=== PATIENT | male | born 1955 | race Caucasian/White ===

== ENCOUNTER 2016-09-30 14:14 | Observation (INO) | payer OTHER ==
[~2016-09-30] VITALS: Ht 182.9 cm; Wt 80.0 kg
[~2016-09-30 14:14] MED LIST: BACT800T5 PO; CLIN1CAP5 PO; LORTA5 PO; MUPI2OIN TOPICAL; SULF-154 PO; [UNRECOGNIZED DRUG - CODE] TOPICAL
[2016-09-30 14:16] VITALS: BP 140/79; PULSE 97; RESP 16; TEMP 98.1; O2SAT 97
[2016-09-30] MEDS ORDERED: VANCOMYCIN INJ 1,200 MG in SODIUM CHLOR 0.9% 250 ML INJ 250 ML IV ONE (14:30)
[2016-09-30] MEDS ORDERED: MORPHINE SULFATE 4 MG/ML INJ IV PUSH ONE (14:30)
[2016-09-30 14:37] VITALS: RESP 16; O2SAT 95
--- NOTE | 2016-09-30 14:43 | PD ---
HPI Chief Complaint: Skin Problem Time Seen by Provider: 14:22 Travel History International Travel<30 days: No Contact w/Intl Traveler<30days: No Traveled to known affect area: No History of Present Illness HPI Patient is a 61 year old male who presents to emergency room with complaints of abscess with cellulitis. 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 Patient reports that he has multiple abrasions to both his hands and his wrists. Patient reports that he noticed areas of abscess on his left finger as well as left wrist for the past few days. Reports that he noticed increased streaking from this left wrist abscess since yesterday. Reports concern as he does have a plate placed by Dr Granados to his left wrist. Reports that he is concerned that his hard phelan might get infected with his abscess with cellulitis. Patient also reports that he noticed abscess to his right mid forearm which is draining pus. Tetanus is up to date. PFSH Past Medical History Hx Anticoagulant Therapy: No Blood Disorders: No Anxiety: No Depression: No Heart Rhythm Problems: No Cancer: No Cardiovascular Problems: No High Cholesterol: No Chemotherapy: No Chest Pain: No Congestive Heart Failure: No COPD: No Cerebrovascular Accident: No Diabetes: No Diminished Hearing: No Endocrine: No Gastrointestinal Disorders: Yes Genitourinary: No Hepatitis: Yes (HEP C) Hiatal Hernia: No Immune Disorder: No Implanted Vascular Access Dvce: No Musculoskeletal: No Neurologic: No Psychiatric: No Reproductive: No Respiratory: No Immunizations Current: No Radiation Therapy: No Sleep Apnea: No Thyroid Disease: No Past Surgical History Abdominal Surgery: No AICD: No Cardiac Surgery: No Ear Surgery: No Endocrine Surgery: No Eye Surgery: No Genitourinary Surgery: No Gynecologic Surgery: No Hysterectomy: No Joint Replacement: No Oral Surgery: No Pacemaker: No Thoracic Surgery: No Other Surgery: Yes Social History Alcohol Use: No Tobacco Use: Yes (1/2 PK/DAY) Substance Use: Yes (alcohol) Allergies-Medications (Allergen,Severity, Reaction): Coded Allergies: *MDRO Multi-Drug Resistant Organism (Verified Adverse Reaction, Unknown, ) 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 Reported Meds & Prescriptions Reported Meds & Active Scripts Active No Active Prescriptions or Reported Medications Review of Systems General / Constitutional: Positive: Fever, Chills Eyes: No: Visual changes HENT: No: Headaches Cardiovascular: No: Chest Pain or Discomfort Respiratory: No: Shortness of Breath Gastrointestinal: No: Abdominal Pain Genitourinary: No: Dysuria Musculoskeletal: No: Pain Skin: Positive Rash Neurologic: No: Weakness Psychiatric: No: Depression Endocrine: No: Polydipsia Hematologic/Lymphatic: No: Easy Bruising Physical Exam Narrative GENERAL: nad, nontoxic SKIN: Warm and dry. LUE: pt with abscess to digit #5, pt with abscess to left wrist with streaking up left forerarm RUE: pt with abscess to right mid forearm with purulent drainage HEAD: Atraumatic. Normocephalic. EYES: Pupils equal and round. No scleral icterus. No injection or drainage. ENT: No nasal bleeding or discharge. Mucous membranes pink and moist. NECK: Trachea midline. No JVD. CARDIOVASCULAR: Regular rate and rhythm. No murmur appreciated. RESPIRATORY: No accessory muscle use. Clear to auscultation. Breath sounds equal bilaterally. GASTROINTESTINAL: Abdomen soft, non-tender, nondistended. Hepatic and splenic margins not palpable. MUSCULOSKELETAL: No obvious deformities. No clubbing. No cyanosis. No edema. NEUROLOGICAL: Awake and alert. No obvious cranial nerve deficits. Motor grossly within normal limits. Normal speech. PSYCHIATRIC: Appropriate mood and affect; insight and judgment normal. Data Data Last Documented VS Vital Signs Date Time Temp Pulse Resp B/P Pulse Ox O2 Delivery O2 Flow Rate FiO2 09/30/16 16:49 69 18 159/84 95 Room Air 09/30/16 14:16 98.1 Orders Complete Blood Count With Diff (09/30/16 14:27) Comprehensive Metabolic Panel (09/30/16 14:27) Prothrombin Time / Inr (Pt) (09/30/16 14:27) Act Partial Throm Time (Ptt) (09/30/16 14:27) Blood Culture (09/30/16 14:27) Chest, Single Ap (09/30/16 14:27) Ecg Monitoring (09/30/16 14:27) Iv Access Insert/Monitor (09/30/16 14:27) Oximetry (09/30/16 14:27) Hand, Complete ([id number]) (09/30/16 ) Forearm (2vws) (09/30/16 ) Forearm (2vws) (09/30/16 ) Vancomycin Inj (Vancomycin Inj) (09/30/16 14:30) Morphine Inj (Morphine Inj) (09/30/16 14:30) Diet Regular Basic (09/30/16 Dinner) Labs Laboratory Tests Test 09/30/16 14:50 White Blood Count 4.6 TH/MM3 Red Blood Count 4.28 MIL/MM3 Hemoglobin 14.8 GM/DL Hematocrit 41.4 % Mean Corpuscular Volume 96.7 FL Mean Corpuscular Hemoglobin 34.6 PG Mean Corpuscular Hemoglobin 35.8 % Concent Red Cell Distribution Width 13.6 % Platelet Count 91 TH/MM3 Mean Platelet Volume 8.5 FL Neutrophils (%) (Auto) 62.3 % Lymphocytes (%) (Auto) 28.5 % Monocytes (%) (Auto) 7.8 % Eosinophils (%) (Auto) 0.7 % Basophils (%) (Auto) 0.7 % Neutrophils # (Auto) 2.9 TH/MM3 Lymphocytes # (Auto) 1.3 TH/MM3 Monocytes # (Auto) 0.4 TH/MM3 Eosinophils # (Auto) 0.0 TH/MM3 Basophils # (Auto) 0.0 TH/MM3 CBC Comment DIFF FINAL Differential Comment Prothrombin Time 11.6 SEC Prothromb Time International 1.0 RATIO Ratio Activated Partial 30.1 SEC Thromboplast Time Sodium Level 136 MEQ/L Potassium Level 4.0 MEQ/L Chloride Level 101 MEQ/L Carbon Dioxide Level 26.8 MEQ/L Anion Gap 8 MEQ/L Blood Urea Nitrogen 17 MG/DL Creatinine 1.21 MG/DL Estimat Glomerular Filtration 61 ML/MIN Rate Random Glucose 199 MG/DL Calcium Level 8.5 MG/DL Total Bilirubin 1.1 MG/DL Aspartate Amino Transf 138 U/L (AST/SGOT) Alanine Aminotransferase 123 U/L (ALT/SGPT) Alkaline Phosphatase 177 U/L Total Protein 8.0 GM/DL Albumin 3.1 GM/DL MDM Medical Decision Making Medical Screen Exam Complete: Yes Emergency Medical Condition: Yes Interpretation(s) Vital Signs Date Time Temp Pulse Resp B/P Pulse Ox O2 Delivery O2 Flow Rate FiO2 09/30/16 14:37 16 95 Room Air 09/30/16 14:37 93 18 09/30/16 14:16 98.1 97 16 140/79 97 Differential Diagnosis abscess with cellulitis, left sided forearm hardware infection Narrative Course 61 year old male with hx of left forearm plate - presents to ER for evaluation of abscess with cellulitis to left upper extremity. Reports that he has been putting A&D cream on his open wounds and reports that wounds are just getting worse. Patient reports that he has been having increased fever/chills. Denies n/v. Reports that tetanus is up to date. Xrays ordered, labs and blood cultures ordered. Will give dose of vancomycin. ' CBC & BMP Diagram 09/30/16 14:50 Last Impressions Chest X-Ray 09/30/16 1427 Signed Impressions: Service Date/Time: Friday, September 30, 2016 15:17 - CONCLUSION: No acute disease. Galo Lovell MD Radius/Ulna X-Ray 09/30/16 0000 Signed Impressions: Service Date/Time: Friday, September 30, 2016 15:20 - CONCLUSION: 1. Fixation distal radius. No acute fracture. Galo Lovell MD Hand X-Ray 09/30/16 0000 Signed Impressions: Service Date/Time: Friday, September 30, 2016 15:23 - CONCLUSION: 1. No acute findings. Galo Lovell MD pt with continued pain to LUE where he has streaking from cellulitis, pt does have hardware to left forearm and will require iv antibiotics, will obs to medicine service case reviewed with dr higgins who accepts pt to service on behalf of dr. henriquez Diagnosis Primary Impression: Cellulitis Admitting Information Admitting Physician Requests: Observation Scripts No Active Prescriptions or Reported Meds Cynthia Garcia DO Sep 30, 2016 14:43 Cynthia Garcia DO Sep 30, 2016 14:43
[2016-09-30 15:18] LABS: AUTOMATED NEUTROPHIL # 2.9 TH/MM3 (1.8-7.7); BASOPHIL % 0.7 % (0.0-2.0); EOSINOPHIL % 0.7 % (0.0-4.0); HEMATOCRIT 41.4 % (39.0-51.0); LYMPH % 28.5 % (9.0-44.0); LYMPHOCYTE # 1.3 TH/MM3 (1.0-4.8); MEAN CELL VOLUME 96.7 FL (80.0-100.0); MEAN CORPUSCULAR HEMOGLOBIN 34.6 PG (27.0-34.0); MEAN CORPUSCULAR HGB CONC 35.8 % (32.0-36.0); MONO % 7.8 % (0.0-8.0); NEUT % 62.3 % (16.0-70.0); PLATELET COUNT 91 TH/MM3 (150-450); RED BLOOD COUNT 4.28 MIL/MM3 (4.50-5.90); RED CELL DISTRIBUTION WIDTH 13.6 % (11.6-17.2); WHITE BLOOD COUNT 4.6 TH/MM3 (4.0-11.0)
[2016-09-30 15:19] LABS: HEMO FLAGS DIFF FINAL
[2016-09-30 15:32] LABS: APTT (PATIENT) 30.1 SEC (24.3-30.1); PROTHROMBIN TIME - PATIENT 11.6 SEC (9.8-11.6)
[2016-09-30 15:41] LABS: ALT (GPT) 123 U/L (12-78); ANION GAP 8 MEQ/L (5-15); AST (GOT) 138 U/L (15-37); BICARBONATE 26.8 MEQ/L (21.0-32.0); BLOOD UREA NITROGEN 17 MG/DL (7-18); CHLORIDE 101 MEQ/L (98-107); GLOMERULAR FILTRATION RATE 61 ML/MIN (>89); SODIUM (NA) 136 MEQ/L (136-145)
[2016-09-30 15:42] LABS: ALKALINE PHOSPHATASE 177 U/L (45-117); TOTAL BILIRUBIN ADULT 1.1 MG/DL (0.2-1.0)
--- NOTE | 2016-09-30 16:10 | RADRPT ---
EXAM DATE/TIME: 09/30/2016 15:17 [facility] COMPARISON: CHEST SINGLE AP, June 19, 2012, 19:50. INDICATIONS : Cough MEDICAL HISTORY : None. SURGICAL HISTORY : Carpal tunnel syndrome. ENCOUNTER: Initial ACUITY: 1 day PAIN SCORE: 0/10 LOCATION: Bilateral chest FINDINGS: A single view of the chest demonstrates the lungs to be symmetrically aerated without evidence of mas s, infiltrate or effusion. The cardiomediastinal contours are unremarkable. Osseous structures are intact. CONCLUSION: No acute disease. Galo Lovell MD on September 30, 2016 at 16:07 Board Certified Radiologist. This report was verified electronically.
--- NOTE | 2016-09-30 16:16 | RADRPT ---
EXAM DATE/TIME: 09/30/2016 15:23 [facility] COMPARISON: No previous studies available for comparison. INDICATIONS : Inflammation and red streaks of Left Forearm x1 day. 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 MEDICAL HISTORY : None. SURGICAL HISTORY : Carpal tunnel syndrome. ENCOUNTER: Initial ACUITY: 1 day PAIN SCORE: 0/10 LOCATION: Left hand FINDINGS: No acute fracture or dislocation. Previous fixation distal radius. Accessory ossicle at ulnar styloid . Mild osteopenia. CONCLUSION: 1. No acute findings. Galo Lovell MD on September 30, 2016 at 16:13 Board Certified Radiologist. This report was verified electronically.
--- NOTE | 2016-09-30 16:30 | RADRPT ---
EXAM DATE/TIME: 09/30/2016 15:20 [facility] COMPARISON: FOREARM RIGHT (2VWS), December 18, 2013, 19:23. INDICATIONS : Inflammation and red streaks of Left Forearm x1 day. 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 MEDICAL HISTORY : None. SURGICAL HISTORY : Carpal tunnel syndrome. ENCOUNTER: Initial ACUITY: 1 day PAIN SCORE: 0/10 LOCATION: Right Forearm FINDINGS: There is plate and screw fixation of the distal radius. No other fracture identified. No dislocation. CONCLUSION: 1. Fixation distal radius. No acute fracture. Galo Lovell MD on September 30, 2016 at 16:24 Board Certified Radiologist. This report was verified electronically.
[2016-09-30 16:49] VITALS: BP 159/84; PULSE 69; RESP 18; O2SAT 95
--- NOTE | 2016-09-30 17:26 | RADRPT ---
EXAM DATE/TIME: 09/30/2016 15:20 [facility] COMPARISON: No previous studies available for comparison. INDICATIONS : Inflammation and red streaks of Left Forearm x1 day. 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 MEDICAL HISTORY : None. SURGICAL HISTORY : Carpal tunnel syndrome. Bilat wrists plates ENCOUNTER: Initial ACUITY: 1 day PAIN SCORE: 10/10 LOCATION: Left Forearm FINDINGS: There is previous plate and screw fixation of the distal radius. No new fracture or dislocation. CONCLUSION: 1. Postop fixation distal radius. No acute findings. Galo Lovell MD on September 30, 2016 at 17:24 Board Certified Radiologist. This report was verified electronically.
[2016-09-30] MEDS ORDERED: ACETAMINOPHEN/HYDROcodone 325 MG/7.5 MG TAB PO PRN (17:30)
[2016-09-30] MEDS ORDERED: ACETAMINOPHEN 500 MG CPLT PO PRN (17:30)
[2016-09-30] MEDS ORDERED: SODIUM CHLORIDE 0.9% FLUSH 5 ML FLUSH IV PRN (17:30)
[2016-09-30] MEDS ORDERED: ONDANSETRON HCL 4 MG/2 ML VIAL IV PRN (17:45)
[2016-09-30] MEDS ORDERED: DOCUSATE SODIUM 50 MG/SENNA 8.6 MG TAB PO PRN (17:45)
--- NOTE | 2016-09-30 17:50 | HHI.HP ---
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 He has been here multiple times for orthopedic injuries as well as wound infections. He presents today with a chief complaint of a tender, warm , erythematous medial left forearm. He has multiple scabs on his arms, and he does not know where they came from whether they came from splinters or bug bites or hitting branches. Yesterday afternoon he noted some left arm pain. Last night, the pain was driving him crazy and he felt febrile with associated nausea and profuse sweating. Thus, he took some NyQuil before bed. This morning, he saw a red streak on his medial left arm. He also noted some yellow discharge for a couple days from some of his scabs. Before morphine he reports that his pain was a 10/10 pain. After morphine he reports that his pain is now 8/10. He reports that his medial left arm feels from his left wrist to elbow. He also reports some tender axillary lymphadenopathy. (Guerrero Frias MD R1) Review of Systems Constitutional: COMPLAINS OF: Diaphoretic episodes, Fever, Chills, Night Sweats Eyes: DENIES: Blurred vision, Diplopia, Double Vision Ears, nose, mouth, throat: DENIES: Hearing loss, Throat pain, Running Nose Respiratory: DENIES: Cough, Wheezing, Shortness of breath Cardiovascular: DENIES: Chest pain, Dyspnea on Exertion, Lower Extremity Edema , Orthopnea Gastrointestinal: COMPLAINS OF: Nausea, DENIES: Abdominal pain, Black stools, Bloody stools, Diarrhea, Vomiting Genitourinary: DENIES: Dysuria Musculoskeletal: COMPLAINS OF: Joint pain (chronic at baseline), Muscle aches ( chronic at baseline) Integumentary: DENIES: Rash Neurologic: COMPLAINS OF: Paresthesias (numb feet and right hand), DENIES: Headache Psychiatric: DENIES: Anxiety, Depression (Guerrero Frias MD R1) Past Family Social History Past Medical History Hep C no DM no h/o MRSA. No abx allergies. couple months since seen a doc. No PCP. No h/o blood clots. Past Surgical History right arm, left arm, left leg, left ankle fractures and surgical repairs from tree injuries. Dr. Granados did all his ortho work from these tree injuries. 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 Active Ordered Medications Current Medications Medications (Trade) Dose Ordered Sig/Sixto Route Start Time Stop Time Status Last Admin (NS Flush) 2 ml BID IV 09/30/16 21:00 09/30/16 20:16 (NS Flush) 2 ml UNSCH PRN IV 09/30/16 17:30 (Tylenol) 500 mg Q4H PRN PO 09/30/16 17:30 ([place]castle 7.5-325 Mg) 1 tab Q4H PRN PO 09/30/16 17:30 (Lovenox Inj) 40 mg Q24H SQ 09/30/16 18:00 (Zofran Inj) 4 mg Q6H PRN IV 09/30/16 17:45 (Mlia-Colace) 1 tab BID PRN PO 09/30/16 17:45 Morphine Sulfate 2 mg 2 mg Q3H PRN IV PUSH 09/30/16 17:45 09/30/16 20:16 (Ancef Inj/NS Inj) 100 ml @ 200 mls/hr Q8H IV 09/30/16 18:00 09/30/16 18:00 (Bactrim Ds 800-160 Mg) 1 tab Q12HR PO 09/30/16 21:00 09/30/16 21:02 Family History His mom of pancreatic cancer at 54 yo. She was a smoker and a drinker. Social History Patient reports that he smokes 7 cigarettes a day for the past 40 years. He quit alcohol because he wanted to take the Hep C drug treatment. Was drinking a 6-12 pack of beer per day for 30 years. GARRY got hep C in [employer] in [facility] as a 18yo. He was emancipated at 17yo. Homeless. Working on getting benefits through [employer]. He has been sleeping outside or with friends. (Guerrero Frias MD R1) Physical Exam Vital Signs Vital Signs Date Time Temp Pulse Resp B/P Pulse Ox O2 Delivery O2 Flow Rate FiO2 09/30/16 16:49 69 18 159/84 95 Room Air 09/30/16 15:41 18 09/30/16 14:37 16 95 Room Air 09/30/16 14:37 93 18 09/30/16 14:16 98.1 97 16 140/79 97 Physical Exam GENERAL: This is a well-nourished, well-developed patient, in no apparent distress. SKIN: Warmth, erythema, tenderness on medial aspect of left forearm. Scab with purulent drainage on right forearm. Scab over distal left ulna, scab on inner side of left pinky finger. No rashes. Cool and dry. HEAD: Atraumatic. Normocephalic. EYES: Pupils equal round and reactive. Extraocular motions intact. No scleral icterus. No injection or drainage. ENT: Nose without bleeding, purulent drainage. Throat without erythema, tonsillar hypertrophy or exudate. Uvula midline. Airway patent. NECK: Trachea midline. No JVD or lymphadenopathy. Supple, nontender, no meningeal signs. CARDIOVASCULAR: Regular rate and rhythm without murmurs, gallops, or rubs. RESPIRATORY: Clear to auscultation. Breath sounds equal bilaterally. No wheezes , rales, or rhonchi. GASTROINTESTINAL: Abdomen soft, non-tender, nondistended. No guarding. MUSCULOSKELETAL: Extremities without clubbing, cyanosis, or edema. No joint tenderness, effusion, or edema noted. No calf tenderness. NEUROLOGICAL: Awake and alert. Cranial nerves II through XII grossly intact. Motor and sensory grossly within normal limits. Normal speech. Laboratory Laboratory Tests Test 09/30/16 14:50 White Blood Count 4.6 Red Blood Count 4.28 Hemoglobin 14.8 Hematocrit 41.4 Mean Corpuscular Volume 96.7 Mean Corpuscular Hemoglobin 34.6 Mean Corpuscular Hemoglobin 35.8 Concent Red Cell Distribution Width 13.6 Platelet Count 91 Mean Platelet Volume 8.5 Neutrophils (%) (Auto) 62.3 Lymphocytes (%) (Auto) 28.5 Monocytes (%) (Auto) 7.8 Eosinophils (%) (Auto) 0.7 Basophils (%) (Auto) 0.7 Neutrophils # (Auto) 2.9 Lymphocytes # (Auto) 1.3 Monocytes # (Auto) 0.4 Eosinophils # (Auto) 0.0 Basophils # (Auto) 0.0 CBC Comment DIFF FINAL Differential Comment Prothrombin Time 11.6 Prothromb Time International 1.0 Ratio Activated Partial 30.1 Thromboplast Time Sodium Level 136 Potassium Level 4.0 Chloride Level 101 Carbon Dioxide Level 26.8 Anion Gap 8 Blood Urea Nitrogen 17 Creatinine 1.21 Estimat Glomerular Filtration 61 Rate Random Glucose 199 Calcium Level 8.5 Total Bilirubin 1.1 Aspartate Amino Transf 138 (AST/SGOT) Alanine Aminotransferase 123 (ALT/SGPT) Alkaline Phosphatase 177 Total Protein 8.0 Albumin 3.1 Date/Time Procedure Status Source Growth 09/30/16 14:55 Aerobic Blood Culture Received Blood Peripheral Pending 09/30/16 14:55 Anaerobic Blood Culture Received Blood Peripheral Pending (Guerrero Frias MD R1) Result Diagram: 09/30/16 1450 09/30/16 1450 Imaging Last Impressions Chest X-Ray 09/30/16 1427 Signed Impressions: Service Date/Time: Friday, September 30, 2016 15:17 - CONCLUSION: No acute disease. Galo Lovell MD Radius/Ulna X-Ray 09/30/16 0000 Signed Impressions: Service Date/Time: Friday, September 30, 2016 15:20 - CONCLUSION: 1. Fixation distal radius. No acute fracture. Galo Lovell MD Hand X-Ray 09/30/16 0000 Signed Impressions: Service Date/Time: Friday, September 30, 2016 15:23 - CONCLUSION: 1. No acute findings. Galo Lovell MD Course In the emergency department, patient received morphine 4 mg IV push, vancomycin IV 1, x-rays of hand and forearm, chest x-ray, blood culture, a PTT, PT/INR, CMP, CBC. (Guerrero Frias MD R1) Assessment and Plan Assessment and Plan Patient is a 61-year-old man who presents with left medial forearm cellulitis. Place in observation for antibiotic treatment and pain control. Code Status Full code Discussed Condition With Patient seen and discussed with Dr. Abril Carrizales (Guerrero Frias MD R1) Attending Attestation THIS CASE WAS DISCUSSED WITH THE RESIDENT PHYSICIAN. I HAVE REVIEWED THE RECORD AND AGREE WITH THE ABOVE NOTE AND PLAN OF CARE WAS DISCUSSED. I HAVE AUTHORIZED THE ORDER FOR PLACEMENT IN OUT-PATIENT OBSERVATION STATUS. (Jules Bermudez MD) Problem List: (1) Cellulitis Status: Acute Plan: Patient presents with left medial forearm cellulitis. Previous wound cultures reviewed. H/o staph resistant to clinda sensitive to cefazolin. Placed in observation CBC daily Blood culture Physical therapy consult Ancef 1000 mg IV every 8 hours. Plan to discharge on Keflex Bactrim DS 800-160 mg 1 tab by mouth every 12 hours Pain control: * Tylenol 500 mg by mouth every 4 hours when necessary for pain 1-5 * [place] 325-7.5 mg 1 tab by mouth every 4 hours when necessary for pain 6-10 * Morphine 2 mg IV push every 3 hours when necessary for breakthrough pain * Mila-Colace one tab by mouth twice a day when necessary for constipation Zofran 4 mg IV every 6 hours when necessary for nausea (2) Homelessness Status: Chronic Plan: Patient reports homelessness and difficulty getting benefits through [employer]. Case management consult (3) Nutrition, metabolism, and development symptoms Status: Acute Plan: Fluids: Patient hydrating well by mouth. Encourage by mouth intake Electrolytes: Replete as needed Nutrition: Regular basic diet GI prophylaxis: Not currently indicated (4) DVT prophylaxis Status: Acute Plan: Lovenox 40 mg subcutaneous every 24 hours SCD/TEDs bilaterally (Guerrero Frias MD R1) Problem Qualifiers (1) Cellulitis: Guerrero Frias MD R1 Sep 30, 2016 17:50 Jules Bermudez MD Oct 01, 2016 11:22
[2016-09-30] MEDS ORDERED: ENOXAPARIN SODIUM 40 MG/0.4 ML SYRINGE SQ SCH (18:00)
[2016-09-30] MEDS ORDERED: CLINDAMYCIN INJ 900 MG in SODIUM CHLORIDE 0.9% INJ 100 ML IV SCH (18:00)
[2016-09-30 19:08] VITALS: BP 144/74; PULSE 67; RESP 18; O2SAT 95
[2016-09-30] MEDS: MORPHINE SULFATE 4 MG/ML INJ IV PUSH PRN (20:16)
[2016-09-30] MEDS: SODIUM CHLORIDE 0.9% FLUSH 5 ML FLUSH IV SCH (20:16)
[2016-09-30 20:20] VITALS: BP 139/69; PULSE 78; RESP 16; TEMP 98.1; O2SAT 96
[2016-09-30] MEDS: SULFAMETHOXAZOLE-TRIMETHOPRIM DS 800-160 MG TAB PO SCH (21:02)
[2016-09-30 23:59] VITALS: BP 159/76; PULSE 88; RESP 18; TEMP 98.8; O2SAT 97
[2016-10-01] MEDS: MORPHINE SULFATE 4 MG/ML INJ IV PUSH PRN ×3 (01:29→09:37)
[2016-10-01 04:00] VITALS: BP 161/78; PULSE 87; RESP 18; TEMP 98; O2SAT 98
[2016-10-01 04:33] LABS: AUTOMATED NEUTROPHIL # 4.3 TH/MM3 (1.8-7.7); BASOPHIL % 0.4 % (0.0-2.0); EOSINOPHIL % 0.8 % (0.0-4.0); HEMATOCRIT 41.5 % (39.0-51.0); LYMPH % 13.8 % (9.0-44.0); LYMPHOCYTE # 0.7 TH/MM3 (1.0-4.8); MEAN CELL VOLUME 97.5 FL (80.0-100.0); MEAN CORPUSCULAR HEMOGLOBIN 34.6 PG (27.0-34.0); MEAN CORPUSCULAR HGB CONC 35.5 % (32.0-36.0); PLATELET COUNT 86 TH/MM3 (150-450); RED BLOOD COUNT 4.26 MIL/MM3 (4.50-5.90); RED CELL DISTRIBUTION WIDTH 13.4 % (11.6-17.2); WHITE BLOOD COUNT 5.4 TH/MM3 (4.0-11.0)
[2016-10-01 04:50] LABS: HEMO FLAGS AUTO DIFF
[2016-10-01 04:57] LABS: ALT (GPT) 122 U/L (12-78); ANION GAP 9 MEQ/L (5-15); AST (GOT) 146 U/L (15-37); BICARBONATE 23.1 MEQ/L (21.0-32.0); BLOOD UREA NITROGEN 16 MG/DL (7-18); CHLORIDE 102 MEQ/L (98-107); GLOMERULAR FILTRATION RATE 67 ML/MIN (>89); POTASSIUM 4.1 MEQ/L (3.5-5.1); SODIUM (NA) 134 MEQ/L (136-145)
[2016-10-01 04:59] LABS: ALKALINE PHOSPHATASE 162 U/L (45-117); TOTAL BILIRUBIN ADULT 0.9 MG/DL (0.2-1.0)
[2016-10-01 07:43] LABS: PLATELET ESTIMATE SMEAR LOW (NORMAL); PLATELET MORPHOLOGY NORMAL (NORMAL); SCAN/DIFF AUTO DIFF CONFIRMED
[2016-10-01 08:00] VITALS: BP 134/73; PULSE 82; RESP 19; TEMP 97.2; O2SAT 98
[2016-10-01] MEDS ORDERED: CALCIUM CARBONATE 500 MG CHEWABLE TAB CHEW SCH (09:00)
--- NOTE | 2016-10-01 09:14 | HHI.DCPOC ---
Discharge Care Plan Diagnosis: (1) Cellulitis Goals to Promote Your Health * To prevent worsening of your condition and complications * To maintain your health at the optimal level Directions to Meet Your Goals Take your medications as prescribed Follow your dietary instruction Follow activity as directed Keep your appointments as scheduled Take your immunizations and boosters as scheduled If your symptoms worsen call your PCP, if no PCP go to Urgent Care Center or Emergency Room Smoking is Dangerous to Your Health. Avoid second hand smoke Call the 24-hour hour crisis hotline for domestic abuse at Den Gunter MD R3 Oct 01, 2016 09:14
[2016-10-01] MEDS ORDERED: diphenhydrAMINE HCL 25 MG CAP PO PRN (09:15)
[2016-10-01] MEDS ORDERED: BACT800T5 PO ×2 (09:18→16:29)
[2016-10-01] MEDS ORDERED: CLIN1CAP6 PO (09:18)
[2016-10-01] MEDS: SODIUM CHLORIDE 0.9% FLUSH 5 ML FLUSH IV SCH (09:36)
[2016-10-01] MEDS: SULFAMETHOXAZOLE-TRIMETHOPRIM DS 800-160 MG TAB PO SCH (09:37)
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
[2016-10-01 12:33] VITALS: BP 124/62; PULSE 70; RESP 18; O2SAT 96
[2016-10-01 13:40] LABS: HEMOGLOBIN A1a 1.4 %; HEMOGLOBIN A1b 0.7 %; HEMOGLOBIN Ao 86.1 %; HEMOGLOBIN F 0.9 %; HEMOGLOBIN P3 3.5 %
[2016-10-01] MEDS ORDERED: HYDR-3580 PO (16:11)
[2016-10-01] MEDS ORDERED: BACI500O2 TOPICAL (16:12)
[2016-10-01] MEDS ORDERED: CEPH-460 PO (16:29)
== END 2016-10-01 18:32 | disposition home or self-care (01) ==
LOC: NEPE 14:14 → NEDA 16:55 → NEPFCDU 19:59
PROVIDERS: ADMIT Family Medicine; ATTEND Family Medicine
DX: L03.114 Cellulitis of left upper limb (principal); B19.20 Unspecified viral hepatitis C without hepatic coma; F17.210 Nicotine dependence, cigarettes, uncomplicated; W57.XXXA Bitten or stung by nonvenomous insect and other nonvenomous arthropods, initial encounter; W14.XXXA Fall from tree, initial encounter; Z59.0 Homelessness; Z80.0 Family history of malignant neoplasm of digestive organs
CPT/HCPCS: 71010; 73090; 73130; 80053; 83036; 85025; 85610; 85730; 87040; 96365; 96366; 96375; 97163; 99284; G0378; G8987; G8988; J0690; J2270; J3370; J7050

== ENCOUNTER 2016-12-05 16:33 | Inpatient (IN) | payer OTHER ==
[~2016-12-05] VITALS: Ht 177.8 cm; Wt 80.0 kg
[~2016-12-05 16:33] MED LIST changes: +BACI500O2 TOPICAL; +CEPH-460 PO; -CLIN1CAP5 PO; +HYDR-3580 PO; -LORTA5 PO; -MUPI2OIN TOPICAL; -SULF-154 PO; -[UNRECOGNIZED DRUG - CODE] TOPICAL
[2016-12-05] MEDS ORDERED: SODIUM CHLOR 0.9% 1000 ML INJ 1,000 ML IV SCH (16:51)
[2016-12-05] MEDS ORDERED: SODIUM CHLORIDE 0.9% FLUSH 10 ML FLUSH IVF PRN (17:00)
[2016-12-05] MEDS ORDERED: MORPHINE SULFATE 4 MG/ML INJ IV ONE (17:00)
[2016-12-05] MEDS ORDERED: ONDANSETRON HCL 4 MG/2 ML VIAL IVP ONE (17:00)
[2016-12-05] MEDS ORDERED: TETANUS/DIPHTHERIA TOXOID ADULT 0.5 ML VIAL IM ONE (17:15)
[2016-12-05 17:20] VITALS: BP 130/64; PULSE 74; RESP 20; TEMP 97.6
[2016-12-05] MEDS ORDERED: LIDOCAINE 1%/EPINEPHrine 1:100,000 SOLN 20 ML VIAL INFIL ONE (17:30)
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
[2016-12-05 17:58] LABS: AUTOMATED NEUTROPHIL # 2.1 TH/MM3 (1.8-7.7); BASOPHIL # 0.1 TH/MM3 (0-0.2); BASOPHIL % 1.4 % (0.0-2.0); EOSINOPHIL # 0.1 TH/MM3 (0-0.4); EOSINOPHIL % 2.6 % (0.0-4.0); HEMATOCRIT 38.4 % (39.0-51.0); HEMO FLAGS DIFF FINAL; LYMPH % 42.4 % (9.0-44.0); MEAN CELL VOLUME 101.6 FL (80.0-100.0); MEAN CORPUSCULAR HEMOGLOBIN 33.9 PG (27.0-34.0); MEAN CORPUSCULAR HGB CONC 33.3 % (32.0-36.0); MONO % 8.6 % (0.0-8.0); PLATELET COUNT 118 TH/MM3 (150-450); RED BLOOD COUNT 3.78 MIL/MM3 (4.50-5.90); RED CELL DISTRIBUTION WIDTH 15.2 % (11.6-17.2); WHITE BLOOD COUNT 4.6 TH/MM3 (4.0-11.0)
[2016-12-05] MEDS ORDERED: MORPHINE SULFATE 4 MG/ML INJ IV PUSH ONE (18:00)
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
[2016-12-05 18:14] LABS: BICARBONATE 21.7 MEQ/L (21.0-32.0); POTASSIUM 4.1 MEQ/L (3.5-5.1)
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
[2016-12-05 18:33] VITALS: BP 138/73; PULSE 84; RESP 18; O2SAT 96
[2016-12-05] MEDS ORDERED: LORazepam 2 MG TAB PO PRN (19:30)
[2016-12-05] MEDS ORDERED: FLUMAZENIL 0.5 MG/5 ML VIAL IV PUSH PRN (19:30)
[2016-12-05] MEDS ORDERED: LORazepam 2 MG/ML VIAL IV PUSH PRN (19:30)
[2016-12-05] MEDS ORDERED: SODIUM CHLORIDE 0.9% FLUSH 10 ML FLUSH IV FLUSH PRN (19:30)
[2016-12-05] MEDS ORDERED: NALOXONE HCL 0.4 MG/ML AMP IV PRN (19:30)
[2016-12-05] MEDS ORDERED: LORazepam 1 MG TAB PO PRN (19:30)
[2016-12-05 19:58] VITALS: O2SAT 97
[2016-12-05] MEDS: FOLIC ACID 1 MG TAB PO SCH (20:58)
[2016-12-05] MEDS: SODIUM CHLOR 0.9% 1000 ML INJ 1,000 ML IV SCH (20:58)
[2016-12-05] MEDS: THIAMINE HCL 100 MG TAB PO SCH (20:59)
[2016-12-05] MEDS: SODIUM CHLORIDE 0.9% FLUSH 10 ML FLUSH IV FLUSH SCH (20:59)
[2016-12-05] MEDS: MORPHINE SULFATE 4 MG/ML INJ IV PUSH PRN (20:59)
[2016-12-05] MEDS: LORazepam 2 MG/ML VIAL IV PUSH PRN (20:59)
[2016-12-05] MEDS: ONDANSETRON HCL 4 MG/2 ML VIAL IVP PRN (21:00)
[2016-12-05 21:02] VITALS: BP 162/75; PULSE 89; RESP 18; O2SAT 96
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
[2016-12-05 23:00] VITALS: BP 151/73; PULSE 84; RESP 21; TEMP 99.4; O2SAT 91
[2016-12-06 04:20] VITALS: PULSE 100; O2SAT 92
[2016-12-06] MEDS: LORazepam 2 MG/ML VIAL IV PUSH PRN (04:32)
[2016-12-06 05:11] LABS: AUTOMATED NEUTROPHIL # 4.5 TH/MM3 (1.8-7.7); BASOPHIL % 0.5 % (0.0-2.0); EOSINOPHIL % 0.4 % (0.0-4.0); HEMATOCRIT 39.7 % (39.0-51.0); HEMO FLAGS DIFF FINAL; LYMPH % 15.9 % (9.0-44.0); LYMPHOCYTE # 0.9 TH/MM3 (1.0-4.8); MEAN CELL VOLUME 100.6 FL (80.0-100.0); MEAN CORPUSCULAR HEMOGLOBIN 33.8 PG (27.0-34.0); MEAN CORPUSCULAR HGB CONC 33.6 % (32.0-36.0); MONO % 6.9 % (0.0-8.0); NEUT % 76.3 % (16.0-70.0); PLATELET COUNT 103 TH/MM3 (150-450); RED BLOOD COUNT 3.95 MIL/MM3 (4.50-5.90); WHITE BLOOD COUNT 5.9 TH/MM3 (4.0-11.0)
[2016-12-06 05:19] LABS: APTT (PATIENT) 30.3 SEC (24.3-30.1); INTERNATIONAL NORMALIZED RATIO 1.1 RATIO
[2016-12-06 05:35] LABS: BICARBONATE 22.9 MEQ/L (21.0-32.0)
[2016-12-06 08:00] VITALS: BP 143/70; PULSE 107; RESP 16; TEMP 99.7; O2SAT 95
[2016-12-06] MEDS: SODIUM CHLOR 0.9% 1000 ML INJ 1,000 ML IV SCH ×2 (08:33→18:25)
[2016-12-06] MEDS: SODIUM CHLORIDE 0.9% FLUSH 10 ML FLUSH IV FLUSH SCH ×2 (08:33→21:25)
[2016-12-06] MEDS: THIAMINE HCL 100 MG TAB PO SCH (08:33)
[2016-12-06] MEDS: FOLIC ACID 1 MG TAB PO SCH (08:33)
[2016-12-06] MEDS: MORPHINE SULFATE 4 MG/ML INJ IV PUSH PRN (08:37)
[2016-12-06 09:12] VITALS: O2SAT 97
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
[2016-12-06] MEDS ORDERED: ONDANSETRON HCL 4 MG/2 ML VIAL IV PUSH ONE (10:00)
[2016-12-06] MEDS ORDERED: LACTATED RINGER'S 1000 ML INJ 1,000 ML IV ONE (10:00)
[2016-12-06] MEDS ORDERED: NEOSTIGMINE 3 MG/3 ML SYR IV ONE (10:00)
[2016-12-06] MEDS ORDERED: PROPOFOL 200 MG/20 ML AMP IV ONE (10:00)
[2016-12-06] MEDS ORDERED: ENALAPRILAT 1.25 MG/ML VIAL IV PUSH PRN (11:00)
[2016-12-06 11:53] VITALS: BP 151/72; PULSE 84; RESP 17; TEMP 98.3; O2SAT 98
[2016-12-06] MEDS ORDERED: DEXAMETHASONE SOD PHOS 4 MG/ML VIAL ONE (15:11)
[2016-12-06] MEDS ORDERED: ceFAZolin INJ 1,000 MG VIAL ONE (15:11)
[2016-12-06] MEDS ORDERED: LIDOCAINE 1%/EPINEPHrine 1:100,000 SOLN 50 ML VIAL ONE (15:11)
[2016-12-06] MEDS ORDERED: CHLORHEXIDINE GLUCONATE 0.12% 30 ML CUP ONE (15:11)
[2016-12-06] MEDS ORDERED: HYDROmorphone HCL PF 2 MG/ML VIAL ONE (15:29)
[2016-12-06] MEDS ORDERED: FAMOTIDINE 20 MG/2 ML VIAL ONE (15:30)
[2016-12-06] MEDS ORDERED: MIDAZOLAM HCL 2 MG/2 ML VIAL ONE (15:37)
[2016-12-06] MEDS ORDERED: BUPIVACAINE/EPINEPHRINE 0.25% PF 30 ML VIAL ONE (15:57)
[2016-12-06] MEDS ORDERED: ceFAZolin INJ 1,000 MG VIAL IV ONE (16:09)
[2016-12-06] MEDS ORDERED: fentaNYL CITRATE 250 MCG/5 ML AMP ONE (17:47)
[2016-12-06] MEDS ORDERED: ACETAMINOPHEN 1000 MG/100 ML VIAL IV ONE ×2 (17:55→18:45)
[2016-12-06] MEDS ORDERED: Post-op Orders (for Pharmacy) MISC XX ONE (18:30)
[2016-12-06] MEDS ORDERED: LORazepam 2 MG/ML VIAL IV PRN (18:45)
[2016-12-06 20:00] VITALS: BP 146/70; PULSE 82; RESP 22; TEMP 98.8; O2SAT 95
[2016-12-06] MEDS: DOCUSATE SODIUM 100 MG CAP PO SCH (21:00)
--- NOTE | 2016-12-06 21:01 | EKG ---
Date Performed: 12/05/2016 Time Performed: 18:10:15 PTAGE: 61 years EKG: Sinus rhythm NORMAL ECG PREVIOUS TRACING : 06/23/2016 17.36 Compared to prior tracing no significant change DOCTOR: Jr Avila Interpretating Date/Time 12/06/2016 21:00:34
[2016-12-06] MEDS: HYDROmorphone HCL PF 1 MG/ML VIAL IV PRN (21:24)
[2016-12-06] MEDS: CLINDAMYCIN INJ 600 MG in SODIUM CHLORIDE 0.9% INJ 50 ML IV SCH (21:24)
[2016-12-07] VITALS (7 sets, daily range): BP systolic 114–144; BP diastolic 61–74; PULSE 73–89; RESP 16–20; TEMP 95.8–98.5; O2SAT 93–97
[2016-12-07] MEDS: CLINDAMYCIN INJ 600 MG in SODIUM CHLORIDE 0.9% INJ 50 ML IV SCH ×2 (04:21→13:03)
[2016-12-07] MEDS: SODIUM CHLOR 0.9% 1000 ML INJ 1,000 ML IV SCH ×2 (04:22→15:00)
[2016-12-07] MEDS: HYDROmorphone HCL PF 1 MG/ML VIAL IV PRN ×8 (04:29→23:44)
[2016-12-07 05:42] LABS: HEMATOCRIT 36.7 % (39.0-51.0); MEAN CELL VOLUME 100.7 FL (80.0-100.0); MEAN CORPUSCULAR HEMOGLOBIN 34.5 PG (27.0-34.0); MEAN CORPUSCULAR HGB CONC 34.3 % (32.0-36.0); PLATELET COUNT 85 TH/MM3 (150-450); RED BLOOD COUNT 3.65 MIL/MM3 (4.50-5.90); RED CELL DISTRIBUTION WIDTH 14.9 % (11.6-17.2); WHITE BLOOD COUNT 6.8 TH/MM3 (4.0-11.0)
[2016-12-07 05:56] LABS: REVIEW FLAG FINAL
[2016-12-07 06:16] LABS: ALKALINE PHOSPHATASE 156 U/L (45-117); ALT (GPT) 86 U/L (12-78); ANION GAP 3 MEQ/L (5-15); AST (GOT) 98 U/L (15-37); BICARBONATE 29.9 MEQ/L (21.0-32.0); BLOOD UREA NITROGEN 16 MG/DL (7-18); CHLORIDE 107 MEQ/L (98-107); GLOMERULAR FILTRATION RATE 86 ML/MIN (>89); MAGNESIUM 2.2 MG/DL (1.5-2.5); POTASSIUM 4.3 MEQ/L (3.5-5.1); SODIUM (NA) 140 MEQ/L (136-145); TOTAL BILIRUBIN ADULT 1.2 MG/DL (0.2-1.0)
--- NOTE | 2016-12-07 08:03 | HHI.PR ---
Subjective Remarks POD #1 for this 61 yo male pat who is s/p ORIF of bilateral mandible fracture. Pt was seen this AM resting comfortable in bed in no acute distress. Pt states that his head hurts and his jaw is sore. However he is feeling better as compared to post-op. Denies any nausea or vomiting. Objective Vital Signs Date Time Temp Pulse Resp B/P Pulse Ox O2 Delivery O2 Flow Rate FiO2 12/07/16 05:14 18 12/07/16 04:00 98.0 76 20 134/72 97 12/07/16 00:00 97.8 80 20 144/74 96 12/06/16 20:00 98.8 82 22 146/70 95 12/06/16 18:15 93 14 142/72 100 Nasal Cannula 2 12/06/16 18:00 96 14 150/68 100 Nasal Cannula 2 12/06/16 17:45 94 14 145/75 99 Nasal Cannula 2 12/06/16 17:33 102.1 106 14 138/72 99 Nasal Cannula 4 12/06/16 11:53 98.3 84 17 151/72 98 12/06/16 09:12 97 Nasal Cannula 2.00 12/06/16 08:42 16 12/06/16 08:00 99.7 107 16 143/70 95 I/O 12/06/16 12/06/16 12/06/16 12/07/16 12/07/16 12/07/16 07:00 15:00 23:00 07:00 15:00 23:00 Intake Total 794 ml 593 ml 2515 ml 580 ml Output Total 800 ml 350 ml 450 ml Balance 794 ml -207 ml 2165 ml 130 ml Intake Oral 60 ml 0 ml 0 ml 0 ml IV Total 734 ml 593 ml 815 ml 580 ml Other 1700 ml Output Urine Total 800 ml 300 ml 450 ml Estimated Blood Loss 50 ml # Voids 2 # Bowel Movements 0 0 0 0 Result Diagram: 12/07/169 12/07/16418 Imaging Last Impressions Maxillofacial CT 12/05/161650 Signed Impressions: Service Date/Time: Monday, December 05, 2016 17:39 - CONCLUSION: 1. Right sphenoid sinus mucosal thickening. 2. Mandibular fractures are noted as above. Imtiaz Flores MD Head CT 12/05/161650 Signed Impressions: Service Date/Time: Monday, December 05, 2016 17:39 - CONCLUSION: Normal examination. Imtiaz Flores MD Cervical Spine CT 12/05/161650 Signed Impressions: Service Date/Time: Monday, December 05, 2016 17:39 - CONCLUSION: Mild degenerative changes without canal stenosis, fracture or listhesis. Imtiaz Flores MD Procedures orif w/mmf of bilateral mandible fractures Objective Remarks Moderate edema of the lower right third of the face. Slight V3 paresthesia of the lower right lip and chin. EMELYN 35mm. Intraorally incision sites clean and dry. (+) hemostasis noted. FOM not elevated. Airway patent. Occlusion stable and reproducible. Medications and IVs Active Medications Acetaminophen (Ofirmev Inj) 1,000 mg ONCE ONCE IV Last administered on 18:45; Admin Dose 1,000 MG; Start 12/06/16 at 18:45; Stop 12/06/16 at 18:46 ; Status DC Acetaminophen 1000 mg 1,000 mg STK-MED ONCE IV Last administered on 12/06/16 17 :55; Admin Dose 1,000 MG; Start 12/06/16 at 17:55; Stop 12/06/16 at 17:56; Status DC Bupivacaine HCl/ Epinephrine Bitart (Marcaine-Epi Pf 0.25% Inj) 30 ml STK-MED ONCE .ROUTE Last administered on 12/06/16 16:12; Admin Dose 6 ML; Start at 15:57; Stop 12/06/16 at 15:58; Status DC Cefazolin Sodium (Ancef Inj) 1,000 mg STK-MED ONCE .ROUTE; Start 12/06/16 at 15: 11; Stop 12/06/16 at 15:12; Status DC Cefazolin Sodium (Ancef Inj) 1,000 mg STK-MED ONCE IV Last administered on 16:09; Admin Dose 1,000 MG; Start 12/06/16 at 16:09; Stop 12/06/16 at 16:39 ; Status DC Chlorhexidine Gluconate (Peridex 0.12% Liq) 60 ml STK-MED ONCE .ROUTE Last administered on 12/06/16 16:12; Admin Dose 60 ML; Start 12/06/16 at 15:11; Stop 12/06/16 at 15:12; Status DC Clindamycin Phosphate/Sodium Chloride (Cleocin Inj/NS Inj) 54 ml @ 108 mls/hr Q8H IV Last administered on 12/07/16 04:21; Admin Dose 108 MLS/HR; Start at 20:00; Stop 12/07/16 at 12:29 Dexamethasone Sodium Phosphate (Decadron Inj) 8 mg STK-MED ONCE .ROUTE; Start at 15:11; Stop 12/06/16 at 15:12; Status DC Diphenhydramine HCl 25 mg 25 mg Q6H PRN PO; Start 12/06/16 at 18:30 Docusate Sodium (Colace) 100 mg BID PO Last administered on 12/07/16 08:21; Admin Dose 100 MG; Start 12/06/16 at 21:00 Enalaprilat (Vasotec Inj) 1.25 mg Q6H PRN IV PUSH; Start 12/06/16 at 11:00 Famotidine (Pepcid Inj) 20 mg STK-MED ONCE .ROUTE Last administered on 15:31; Admin Dose 20 MG; Start 12/06/16 at 15:30; Stop 12/06/16 at 15:31; Status DC Fentanyl Citrate (fentaNYL INJ) 100 mcg STK-MED ONCE .ROUTE; Start 12/06/16 at 15:29; Stop 12/06/16 at 15:30; Status DC Fentanyl Citrate (fentaNYL INJ) 250 mcg STK-MED ONCE .ROUTE; Start 12/06/16 at 17:47; Stop 12/06/16 at 17:48; Status DC Hydromorphone HCl (Dilaudid Pf Inj) 0.5 mg Q2H PRN IV Last administered on 12/07 08:22; Admin Dose 0.5 MG; Start 12/06/16 at 18:30 Hydromorphone HCl (Dilaudid Pf Inj) 1 mg Q2H PRN IV Last administered on 06:08; Admin Dose 1 MG; Start 12/06/16 at 18:30 Hydromorphone HCl (Dilaudid Pf Inj) 2 mg STK-MED ONCE .ROUTE; Start 12/06/16 at 15:29; Stop 12/06/16 at 15:30; Status DC Ketorolac Tromethamine (Toradol Inj) 15 mg Q6H PRN IVP; Start 12/06/16 at 18:30 ; Stop 12/11/16 at 18:29 Lidocaine/ Epinephrine (Xylocaine-Epi 1%-1:100,000 Inj) 50 ml STK-MED ONCE .ROUTE Last administered on 12/06/16 16:12; Admin Dose 6 ML; Start 12/06/16 at 15:11; Stop 12/06/16 at 15:12; Status DC Lorazepam (Ativan Inj) 1 mg ONCE PRN IV Last administered on 12/06/16 21:33; Admin Dose 1 MG; Start 12/06/16 at 18:45; Stop 12/06/16 at 23:59; Status DC Midazolam HCl (Versed Inj) 2 mg STK-MED ONCE .ROUTE Last administered on 15:41; Admin Dose 2 MG; Start 12/06/16 at 15:37; Stop 12/06/16 at 15:38; Status DC Miscellaneous Information (Post-op Orders (for Pharmacy)) STAT ONCE XX; Start 12/06/16 at 18:30; Stop 12/06/16 at 18:31; Status DC Sodium Chloride (NS 1000 ml Inj) 1,000 ml @ 100 mls/hr Q10H IV Last administered on 12/07/16 04:22; Admin Dose 100 MLS/HR; Start 12/06/16 at 19:00 Sodium Chloride (NS Flush) 2 ml BID IV FLUSH Last administered on 12/06/16 21: 25; Admin Dose 2 ML; Start 12/06/16 at 21:00 Sodium Chloride (NS Flush) 2 ml UNSCH PRN IV FLUSH; Start 12/06/16 at 18:30 Zolpidem Tartrate (Ambien) 5 mg HS PRN PO; Start 12/06/16 at 18:30 Assessment and Plan Assessment and Plan A: This is a 61-year-old male status Open reduction and internal fixation with close reduction bilateral mandible fractures. P: Patient is cleared for discharge from the Oral maxillofacial service Patient is to follow up in one week with Dr. Stanley in office Puree diet for 4 weeks Chlorhexidine rinse BID Pain meds Antibiotics Shashi Stanley DDS Dec 07, 2016 08:03
[2016-12-07] MEDS: DOCUSATE SODIUM 100 MG CAP PO SCH ×2 (08:21→22:22)
[2016-12-07] MEDS: SODIUM CHLORIDE 0.9% FLUSH 10 ML FLUSH IV FLUSH SCH ×2 (08:21→21:00)
[2016-12-07] MEDS: THIAMINE HCL 100 MG TAB PO SCH (08:21)
[2016-12-07] MEDS: FOLIC ACID 1 MG TAB PO SCH (08:21)
--- NOTE | 2016-12-07 09:39 | HHI.PR ---
Subjective Remarks pain controlled denies cp/sob patient was agitated last night for which he was placed on restraints some tremors noted Objective Vitals Vital Signs Date Time Temp Pulse Resp B/P Pulse Ox O2 Delivery O2 Flow Rate FiO2 12/07/16 08:00 98.2 86 19 119/62 96 12/07/16 05:14 18 12/07/16 04:00 98.0 76 20 134/72 97 12/07/16 00:00 97.8 80 20 144/74 96 12/06/16 20:00 98.8 82 22 146/70 95 12/06/16 18:15 93 14 142/72 100 Nasal Cannula 2 12/06/16 18:00 96 14 150/68 100 Nasal Cannula 2 12/06/16 17:45 94 14 145/75 99 Nasal Cannula 2 12/06/16 17:33 102.1 106 14 138/72 99 Nasal Cannula 4 12/06/16 11:53 98.3 84 17 151/72 98 I/O 12/06/16 12/06/16 12/06/16 12/07/16 12/07/16 12/07/16 07:00 15:00 23:00 07:00 15:00 23:00 Intake Total 794 ml 593 ml 2515 ml 580 ml 120 ml Output Total 800 ml 350 ml 450 ml Balance 794 ml -207 ml 2165 ml 130 ml 120 ml Intake Oral 60 ml 0 ml 0 ml 0 ml 120 ml IV Total 734 ml 593 ml 815 ml 580 ml Other 1700 ml Output Urine Total 800 ml 300 ml 450 ml Estimated Blood Loss 50 ml # Voids 2 # Bowel Movements 0 0 0 0 Result Diagram: 12/07/16 0419 12/07/169 Imaging Last Impressions Maxillofacial CT 12/05/161650 Signed Impressions: Service Date/Time: Monday, December 05, 2016 17:39 - CONCLUSION: 1. Right sphenoid sinus mucosal thickening. 2. Mandibular fractures are noted as above. Imtiaz Flores MD Head CT 12/05/161650 Signed Impressions: Service Date/Time: Monday, December 05, 2016 17:39 - CONCLUSION: Normal examination. Imtiaz Flores MD Cervical Spine CT 12/05/161650 Signed Impressions: Service Date/Time: Monday, December 05, 2016 17:39 - CONCLUSION: Mild degenerative changes without canal stenosis, fracture or listhesis. Imtiaz Flores MD Objective Remarks GENERAL: This is a very thin, malnourished patient, currently on soft wrist restraints. Not in acute distress. SKIN: No rashes, ecchymoses or lesions. Cool and dry. HEAD: Atraumatic. Normocephalic. No temporal or scalp tenderness. EYES: Pupils equal round and reactive. Extraocular motions intact. No scleral icterus. No injection or drainage. ENT: Nose without bleeding, purulent drainage or septal hematoma. Throat without erythema, tonsillar hypertrophy or exudate. Uvula midline. Airway patent. No oral deformity. NECK: Trachea midline. No JVD or lymphadenopathy. Supple, nontender, no meningeal signs. CARDIOVASCULAR: Regular rate and rhythm without murmurs, gallops, or rubs. RESPIRATORY: Clear to auscultation. Breath sounds equal bilaterally. No wheezes , rales, or rhonchi. GASTROINTESTINAL: Abdomen soft, non-tender, nondistended. No hepato-splenomegaly , or palpable masses. No guarding. MUSCULOSKELETAL: Extremities without clubbing, cyanosis, or edema. No joint tenderness, effusion, or edema noted. No calf tenderness. Negative Homans sign bilaterally. NEUROLOGICAL: Awake and alert. Cranial nerves II through XII intact. Motor and sensory grossly within normal limits. Five out of 5 muscle strength in all muscle groups. Normal speech. Patient shows tremors of upper extremities. Procedures ORIF with close reduction to maxillomandibular fixation, right parasymphysis, left subcondylar mandibular KLS on 12/06/16. Medications and IVs Current Medications Medications (Trade) Dose Ordered Sig/Sixto Route Start Time Stop Time Status Last Admin (Zofran Inj) 4 mg Q6H PRN IVP 12/05/16 19:30 12/05/16 21:00 (Narcan Inj) 0.4 mg UNSCH PRN IV 12/05/16 19:30 (Romazicon Inj) 0.2 mg Q1M PRN IV PUSH 12/05/16 19:30 (Ativan) 1 mg Q4H PRN PO 12/05/16 19:30 (Ativan Inj) 1 mg Q4H PRN IV PUSH 12/05/16 19:30 12/06/16 04:32 (Ativan) 2 mg Q2H PRN PO 12/05/16 19:30 (Ativan Inj) 2 mg Q2H PRN IV PUSH 12/05/16 19:30 (Ativan Inj) 2 mg Q1H PRN IV PUSH 12/05/16 19:30 (Ativan Inj) 2 mg Q15M PRN IV PUSH 12/05/16 19:30 (Folate) 1 mg DAILY PO 12/05/16 20:00 12/07/16 08:21 (Vitamin B1) 100 mg DAILY PO 12/05/16 20:00 12/07/16 08:21 Enalaprilat 1.25 mg 1.25 mg Q6H PRN IV PUSH 12/06/16 11:00 (NS 1000 ml Inj) 1,000 ml @ 100 mls/hr Q10H IV 12/06/16 19:00 12/07/16 04:22 (NS Flush) 2 ml UNSCH PRN IV FLUSH 12/06/16 18:30 (NS Flush) 2 ml BID IV FLUSH 12/06/16 21:00 12/06/16 21:25 (Toradol Inj) 15 mg Q6H PRN IVP 12/06/16 18:30 12/11/16 18:29 (Dilaudid Pf Inj) 0.5 mg Q2H PRN IV 12/06/16 18:30 12/07/16 08:22 (Dilaudid Pf Inj) 1 mg Q2H PRN IV 12/06/16 18:30 12/07/16 06:08 (Colace) 100 mg BID PO 12/06/16 21:00 12/07/16 08:21 (Ambien) 5 mg HS PRN PO 12/06/16 18:30 Diphenhydramine HCl 25 mg 25 mg Q6H PRN PO 12/06/16 18:30 (Cleocin Inj/NS Inj) 54 ml @ 108 mls/hr Q8H IV 12/06/16 20:00 12/07/16 12:29 12/07/16 04:21 Urinary Catheter: No Vascular Central Line Catheter: No A/P Problem List: (1) Mandibular fracture ICD Code: S02.609A Status: Acute Plan: CT as described above shows a nondisplaced fracture of the mandible. Admited the patient to the medical/surgical floor Maxillofacial surgery consulte Patient is sp ORIF of mandible. Patient cleared for discharge by maxillofacial surgery. On clindamycin IV. (2) Hepatitis C ICD Code: B19.20 Status: Acute Plan: Liver f function tests show mild transaminitis. Continue to monitor LFTs. Patient had hepatitis profile done in 2014 which was positive for hepatitis C. CT abdomen and pelvis at the time did not show any liver abnormalities. (3) Alcohol abuse ICD Code: F10.10 Status: Chronic Plan: With alcohol intoxication on admission with an alcohol level of 292. Patient is showing some tremors in the upper extremities. Vital signs stable. Possible early withdrawal symptoms, I will continue to monitor in the floor. If no further symptoms of withdrawal then will discharge later. I will also order PT eval. (4) Tobacco abuse ICD Code: Z72.0 Status: Chronic Plan: Advised smoking cessation. Placed on nicotine patch. (5) Homelessness ICD Code: Z59.0 Status: Chronic Plan: bike shop manager to assist. (6) Agitation ICD Code: R45.1 Status: Acute Plan: Continue Ativan PRN and restraints as needed. Required soft restraints on December 06, however now off restraints. (7) Hyperglycemia ICD Code: R73.9 Status: Acute Plan: Possibly stress-induced. Check hemoglobin A1c. (8) Transaminitis ICD Code: R74.0 Status: Chronic Plan: Patient has mild transaminitis with an AST of 98 and and an ALT of 98. This is likely secondary to hepatitis C. Elevation of transaminases is chronic and as per review of records the patient has had higher transaminases in the past. Continue to monitor liver function tests. Assessment and Plan GI prophylaxis: PPI. DVT prophylaxis: SCDs, the patient continues to stay in the hospital I will add heparin subcutaneous. Discharge Planning DC pending clinical improvement of possible early withdrawal symptoms. Pending PT eval. Problem Qualifiers (1) Mandibular fracture: Qualified Code: S02.611A - Closed fracture of right condylar process of mandible, initial encounter (2) Hepatitis C: Qualified Code: B18.2 - Chronic hepatitis C without hepatic coma Guanaco Miguel MD Dec 07, 2016 09:39
[2016-12-07] MEDS ORDERED: GLUCAGON 1 MG/ML VIAL OTHER PRN (10:30)
[2016-12-07] MEDS ORDERED: DEXTROSE 50% IN WATER 50 ML VIAL(D50) IV PUSH PRN (10:30)
[2016-12-07] MEDS: INSULIN ASPART SUPPLEMENTAL SCALE SQ SCH ×3 (11:00→21:00)
[2016-12-07 12:01] LABS: HEMOGLOBIN A1b 0.6 %; HEMOGLOBIN Ao 86.9 %; HEMOGLOBIN F 0.8 %; HEMOGLOBIN LA1C 2.4 %; HEMOGLOBIN P3 4.6 %
[2016-12-07] MEDS: LORazepam 2 MG/ML VIAL IV PUSH PRN ×4 (12:21→23:45)
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
[2016-12-08] VITALS (7 sets, daily range): BP systolic 134–157; BP diastolic 65–76; PULSE 64–82; RESP 16–21; TEMP 97.4–98.6; O2SAT 94–98
[2016-12-08] MEDS: SODIUM CHLOR 0.9% 1000 ML INJ 1,000 ML IV SCH ×3 (01:55→21:43)
[2016-12-08] MEDS: HYDROmorphone HCL PF 1 MG/ML VIAL IV PRN ×2 (03:45→12:46)
[2016-12-08] MEDS: LORazepam 2 MG/ML VIAL IV PUSH PRN ×3 (03:57→21:48)
[2016-12-08 06:20] LABS: ALT (GPT) 68 U/L (12-78); ANION GAP 5 MEQ/L (5-15); AST (GOT) 84 U/L (15-37); BICARBONATE 28.3 MEQ/L (21.0-32.0); BLOOD UREA NITROGEN 20 MG/DL (7-18); CHLORIDE 107 MEQ/L (98-107); GLOMERULAR FILTRATION RATE 100 ML/MIN (>89); POTASSIUM 4.1 MEQ/L (3.5-5.1); SODIUM (NA) 140 MEQ/L (136-145)
[2016-12-08 06:22] LABS: ALKALINE PHOSPHATASE 143 U/L (45-117)
[2016-12-08] MEDS: INSULIN ASPART SUPPLEMENTAL SCALE SQ SCH ×4 (06:25→21:00)
[2016-12-08] MEDS: SODIUM CHLORIDE 0.9% FLUSH 10 ML FLUSH IV FLUSH SCH ×2 (09:00→21:45)
[2016-12-08] MEDS: DOCUSATE SODIUM 100 MG CAP PO SCH ×2 (09:53→21:45)
[2016-12-08] MEDS: FOLIC ACID 1 MG TAB PO SCH (09:53)
[2016-12-08] MEDS: THIAMINE HCL 100 MG TAB PO SCH (09:53)
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
[2016-12-08] MEDS: AMPICILLIN-SULBACTAM INJ 3 GM in SODIUM CHLORIDE 0.9% INJ 100 ML IV SCH (21:43)
[2016-12-08] MEDS: ZOLPIDEM TARTRATE 5 MG TAB PO PRN (21:45)
[2016-12-08] MEDS: KETOROLAC TROMETHAMINE 30 MG/ML (IVP) VIAL IVP PRN (21:46)
[2016-12-09] VITALS (8 sets, daily range): BP systolic 138–156; BP diastolic 64–77; PULSE 53–78; RESP 14–18; TEMP 96.4–97.7; O2SAT 93–100
[2016-12-09] MEDS: LORazepam 2 MG/ML VIAL IV PUSH PRN ×8 (00:04→22:42)
[2016-12-09] MEDS: AMPICILLIN-SULBACTAM INJ 3 GM in SODIUM CHLORIDE 0.9% INJ 100 ML IV SCH ×4 (01:46→21:00)
[2016-12-09 05:42] LABS: AUTOMATED NEUTROPHIL # 2.1 TH/MM3 (1.8-7.7); BASOPHIL % 0.5 % (0.0-2.0); EOSINOPHIL # 0.1 TH/MM3 (0-0.4); EOSINOPHIL % 1.8 % (0.0-4.0); HEMATOCRIT 35.7 % (39.0-51.0); LYMPH % 30.4 % (9.0-44.0); LYMPHOCYTE # 1.1 TH/MM3 (1.0-4.8); MEAN CELL VOLUME 101.1 FL (80.0-100.0); MEAN CORPUSCULAR HEMOGLOBIN 33.7 PG (27.0-34.0); MEAN CORPUSCULAR HGB CONC 33.3 % (32.0-36.0); MONO % 7.3 % (0.0-8.0); PLATELET COUNT 72 TH/MM3 (150-450); RED BLOOD COUNT 3.53 MIL/MM3 (4.50-5.90); RED CELL DISTRIBUTION WIDTH 14.2 % (11.6-17.2); WHITE BLOOD COUNT 3.6 TH/MM3 (4.0-11.0)
[2016-12-09 05:50] LABS: ALT (GPT) 81 U/L (12-78); ANION GAP 7 MEQ/L (5-15); AST (GOT) 119 U/L (15-37); BICARBONATE 24.7 MEQ/L (21.0-32.0); BLOOD UREA NITROGEN 14 MG/DL (7-18); CHLORIDE 103 MEQ/L (98-107); GLOMERULAR FILTRATION RATE 110 ML/MIN (>89); MAGNESIUM 1.8 MG/DL (1.5-2.5); POTASSIUM 3.5 MEQ/L (3.5-5.1); SODIUM (NA) 135 MEQ/L (136-145)
[2016-12-09 05:52] LABS: ALKALINE PHOSPHATASE 182 U/L (45-117); TOTAL BILIRUBIN ADULT 1.6 MG/DL (0.2-1.0)
[2016-12-09 05:57] LABS: HEMO FLAGS AUTO DIFF
[2016-12-09] MEDS: INSULIN ASPART SUPPLEMENTAL SCALE SQ SCH ×4 (06:21→21:00)
[2016-12-09] MEDS: SODIUM CHLOR 0.9% 1000 ML INJ 1,000 ML IV SCH ×3 (07:30→22:40)
[2016-12-09] MEDS: THIAMINE HCL 100 MG TAB PO SCH (08:34)
[2016-12-09] MEDS: DOCUSATE SODIUM 100 MG CAP PO SCH ×2 (08:34→22:41)
[2016-12-09] MEDS: FOLIC ACID 1 MG TAB PO SCH (08:34)
[2016-12-09] MEDS: SODIUM CHLORIDE 0.9% FLUSH 10 ML FLUSH IV FLUSH SCH ×2 (08:35→21:00)
[2016-12-09 09:01] LABS: PLATELET ESTIMATE SMEAR LOW (NORMAL); PLATELET MORPHOLOGY NORMAL (NORMAL); SCAN/DIFF AUTO DIFF CONFIRMED
[2016-12-09] MEDS: SODIUM CHLORIDE 0.9% FLUSH 10 ML FLUSH IV FLUSH PRN (10:10)
--- NOTE | 2016-12-09 10:15 | RADRPT ---
EXAM DATE/TIME: 12/09/2016 09:48 [facility] COMPARISON: HAND RIGHT COMPLETE ([id number]), June 23, 2016, 17:45. INDICATIONS : Inflammation to right hand, no known injury. MEDICAL HISTORY : None. SURGICAL HISTORY : Wrist plate. ENCOUNTER: Initial ACUITY: 1 day PAIN SCORE: Non-responsive. LOCATION: Right hand FINDINGS: There is old healed fracture of the fifth metacarpal bone and distal ulnar styloid with postsurgical changes of the distal radius not changed. Acute fracture is not seen. CONCLUSION: Chronic changes and no evidence for acute fracture. Yvonne Chase MD on December 09, 2016 at 10:12 Board Certified Radiologist. This report was verified electronically.
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
--- NOTE | 2016-12-09 18:36 | HHI.PR ---
Subjective Remarks Blood pressure seems to be stable. Patient still requiring to be in soft restraints. Initially was sleeping when I went in. Denies chest pain or short of breath Ultrasound was observed I blood cell count, hemoglobin and platelets dropping. Objective Vitals Vital Signs Date Time Temp Pulse Resp B/P Pulse Ox O2 Delivery O2 Flow Rate FiO2 12/09/16 16:00 96.5 61 17 156/76 98 12/09/16 13:17 97 21 12/09/16 12:00 96.7 56 18 156/77 93 12/09/16 08:00 96.4 53 16 138/64 97 12/09/16 06:21 14 12/09/16 00:27 97.7 78 17 156/68 97 12/08/16 20:00 97.9 79 16 143/67 94 I/O 12/08/16 12/08/16 12/08/16 12/09/16 12/09/16 12/09/16 07:00 15:00 23:00 07:00 15:00 23:00 Intake Total 986 ml 120 ml 998 ml Output Total 400 ml 100 ml 500 ml 700 ml Balance -400 ml 886 ml -380 ml -700 ml 998 ml Intake Oral 250 ml 120 ml 600 ml IV Total 736 ml 398 ml Output Urine Total 400 ml 100 ml 500 ml 700 ml # Voids 3 4 # Bowel Movements 0 0 Result Diagram: 12/09/16 0440 12/09/16 0440 Imaging Last Impressions Hand X-Ray 12/09/16 0000 Signed Impressions: Service Date/Time: Friday, December 09, 2016 09:48 - CONCLUSION: Chronic changes and no evidence for acute fracture. Yvonne Chase MD Maxillofacial CT 12/05/161650 Signed Impressions: Service Date/Time: Monday, December 05, 2016 17:39 - CONCLUSION: 1. Right sphenoid sinus mucosal thickening. 2. Mandibular fractures are noted as above. Imtiaz Flores MD Head CT 12/05/161650 Signed Impressions: Service Date/Time: Monday, December 05, 2016 17:39 - CONCLUSION: Normal examination. Imtiaz Flores MD Cervical Spine CT 12/05/161650 Signed Impressions: Service Date/Time: Monday, December 05, 2016 17:39 - CONCLUSION: Mild degenerative changes without canal stenosis, fracture or listhesis. Imtiaz Flores MD Objective Remarks GENERAL: This is a very thin, malnourished patient, currently on soft wrist restraints. Patient in moderate distress due to agitation. SKIN: No rashes, ecchymoses or lesions. Cool and dry. HEAD: Atraumatic. Normocephalic. No temporal or scalp tenderness. EYES: Pupils equal round and reactive. Extraocular motions intact. No scleral icterus. No injection or drainage. ENT: Nose without bleeding, purulent drainage or septal hematoma. Throat without erythema, tonsillar hypertrophy or exudate. Uvula midline. Airway patent. No oral deformity. NECK: Trachea midline. No JVD or lymphadenopathy. Supple, nontender, no meningeal signs. CARDIOVASCULAR: Regular rate and rhythm without murmurs, gallops, or rubs. RESPIRATORY: Clear to auscultation. Breath sounds equal bilaterally. No wheezes , rales, or rhonchi. GASTROINTESTINAL: Abdomen soft, non-tender, nondistended. No hepato-splenomegaly , or palpable masses. No guarding. MUSCULOSKELETAL: Extremities without clubbing, cyanosis, or edema. No joint tenderness, effusion, or edema noted. No calf tenderness. Negative Homans sign bilaterally. Right hand is dressed, dressing is C/D/I. NEUROLOGICAL: Awake and alert. Cranial nerves II through XII intact. Motor and sensory grossly within normal limits. Five out of 5 muscle strength in all muscle groups. Normal speech. Patient shows tremors of upper extremities. Procedures ORIF with close reduction to maxillomandibular fixation, right parasymphysis, left subcondylar mandibular KLS on 12/06/16. Medications and IVs Current Medications Medications (Trade) Dose Ordered Sig/Sixto Route Start Time Stop Time Status Last Admin (Zofran Inj) 4 mg Q6H PRN IVP 12/05/16 19:30 12/05/16 21:00 (Narcan Inj) 0.4 mg UNSCH PRN IV 12/05/16 19:30 (Romazicon Inj) 0.2 mg Q1M PRN IV PUSH 12/05/16 19:30 (Ativan) 1 mg Q4H PRN PO 12/05/16 19:30 12/08/16 12:45 (Ativan Inj) 1 mg Q4H PRN IV PUSH 12/05/16 19:30 12/08/16 09:59 (Ativan) 2 mg Q2H PRN PO 12/05/16 19:30 12/08/16 18:09 (Ativan Inj) 2 mg Q2H PRN IV PUSH 12/05/16 19:30 12/09/16 13:15 (Ativan Inj) 2 mg Q1H PRN IV PUSH 12/05/16 19:30 12/09/16 06:16 (Ativan Inj) 2 mg Q15M PRN IV PUSH 12/05/16 19:30 (Folate) 1 mg DAILY PO 12/05/16 20:00 12/09/16 08:34 (Vitamin B1) 100 mg DAILY PO 12/05/16 20:00 12/09/16 08:34 Enalaprilat 1.25 mg 1.25 mg Q6H PRN IV PUSH 12/06/16 11:00 (NS 1000 ml Inj) 1,000 ml @ 100 mls/hr Q10H IV 12/06/16 19:00 12/09/16 16:10 (NS Flush) 2 ml UNSCH PRN IV FLUSH 12/06/16 18:30 12/09/16 10:10 (NS Flush) 2 ml BID IV FLUSH 12/06/16 21:00 12/09/16 08:35 (Toradol Inj) 15 mg Q6H PRN IVP 12/06/16 18:30 12/11/16 18:29 12/08/16 21:46 (Dilaudid Pf Inj) 0.5 mg Q2H PRN IV 12/06/16 18:30 12/08/16 12:46 (Dilaudid Pf Inj) 1 mg Q2H PRN IV 12/06/16 18:30 12/07/16 17:47 (Colace) 100 mg BID PO 12/06/16 21:00 12/09/16 08:34 (Ambien) 5 mg HS PRN PO 12/06/16 18:30 12/08/16 21:45 (Benadryl) 25 mg Q6H PRN PO 12/06/16 18:30 (D50w (Vial) Inj) 25 ml UNSCH PRN IV PUSH 12/07/16 10:30 Glucagon 1 mg 1 mg UNSCH PRN OTHER 12/07/16 10:30 (Unasyn Inj/NS Inj) 100 ml @ 200 mls/hr Q6H IV 12/08/16 21:00 12/09/16 13:16 Urinary Catheter: No Vascular Central Line Catheter: No A/P Problem List: (1) Mandibular fracture ICD Code: S02.609A Status: Acute Plan: CT as described above shows a nondisplaced fracture of the mandible. Admited the patient to the medical/surgical floor Maxillofacial surgery consulte Patient is sp ORIF of mandible. Patient cleared for discharge by maxillofacial surgery. On clindamycin IV. (2) Hepatitis C ICD Code: B19.20 Status: Acute Plan: Liver f function tests show mild transaminitis. Continue to monitor LFTs. Patient had hepatitis profile done in 2014 which was positive for hepatitis C. CT abdomen and pelvis at the time did not show any liver abnormalities. 12/08 Terry transaminitis is improving. (3) Alcohol abuse ICD Code: F10.10 Status: Chronic Plan: With alcohol intoxication on admission with an alcohol level of 292. Patient is showing some tremors in the upper extremities. Vital signs stable. Patient with alcoholic withdrawal hallucinosis. Continue CIWA protocol, restraint as needed for agitation. (4) Tobacco abuse ICD Code: Z72.0 Status: Chronic Plan: Advised smoking cessation. Placed on nicotine patch. (5) Homelessness ICD Code: Z59.0 Status: Chronic Plan: procurement services manager to assist. (6) Agitation ICD Code: R45.1 Status: Acute Plan: Continue Ativan PRN and restraints as needed. Required soft restraints on December 06, however now off restraints. Agitation is likely secondary to alcohol withdrawal. (7) Hyperglycemia ICD Code: R73.9 Status: Acute Plan: Stress-induced. Hemoglobin A1c 4.5, diabetes ruled out. Blood sugar seems to be stable. Continue SSI with insulin NovoLog. (8) Transaminitis ICD Code: R74.0 Status: Chronic Plan: Patient with limited transaminases which it initially were trending down , today trending up. AST went up from 84-119, ALT went up from 68-81. Continue to monitor LFTs. Transaminitis likely secondary to hepatitis C. (9) Abscess of right hand ICD Code: L02.511 Status: Acute Plan: Appreciate hand surgery recommendations. The patient will need surgical treatment for the hand abscess. Continue IV Unasyn. (10) Thrombocytopenia ICD Code: D69.6 Status: Acute Plan: As per review of records the patient has chronic Darvocet opinion likely secondary to his alcohol ingestion. I will order hit antibody test and hold heparin subcutaneous density for now. (11) Leukopenia ICD Code: D72.819 Status: Acute Plan: The patient's WBC count came down to 3.6 from 6.8. Likely secondary to stress and/or alcohol intake. The patient has had leukopenia in the past. Continue to monitor CBC with differential. (12) Anemia ICD Code: D64.9 Status: Acute Plan: Microcytic anemia. I will check B12 and folate. I will also check iron studies and stool guaiac. Assessment and Plan GI prophylaxis: PPI. DVT prophylaxis: SCDs, hold heparin subcutaneously given dropping platelets. Discharge Planning Continue to monitor in the medical floor. The patient is incapable of making medical decisions. He cannot sign himself out. Problem Qualifiers (1) Mandibular fracture: Qualified Code: S02.611A - Closed fracture of right condylar process of mandible, initial encounter (2) Hepatitis C: Qualified Code: B18.2 - Chronic hepatitis C without hepatic coma (3) Leukopenia: (4) Anemia: Qualified Code: D64.9 - Anemia, unspecified type Guanaco Miguel MD Dec 09, 2016 18:35
[2016-12-10] VITALS: BP 144/74; PULSE 62; RESP 20; TEMP 97.4; O2SAT 99
[2016-12-10] MEDS: AMPICILLIN-SULBACTAM INJ 3 GM in SODIUM CHLORIDE 0.9% INJ 100 ML IV SCH ×4 (03:52→23:32)
[2016-12-10] MEDS: LORazepam 2 MG/ML VIAL IV PUSH PRN ×2 (03:52→16:26)
[2016-12-10 06:16] LABS: AUTOMATED NEUTROPHIL # 1.8 TH/MM3 (1.8-7.7); BASOPHIL % 0.4 % (0.0-2.0); EOSINOPHIL # 0.1 TH/MM3 (0-0.4); EOSINOPHIL % 3.3 % (0.0-4.0); HEMATOCRIT 38.2 % (39.0-51.0); LYMPH % 30.2 % (9.0-44.0); MEAN CELL VOLUME 99.9 FL (80.0-100.0); MEAN CORPUSCULAR HEMOGLOBIN 33.7 PG (27.0-34.0); MEAN CORPUSCULAR HGB CONC 33.8 % (32.0-36.0); MONO % 10.7 % (0.0-8.0); NEUT % 55.4 % (16.0-70.0); PLATELET COUNT 89 TH/MM3 (150-450); RED BLOOD COUNT 3.83 MIL/MM3 (4.50-5.90); WHITE BLOOD COUNT 3.3 TH/MM3 (4.0-11.0)
[2016-12-10] MEDS: INSULIN ASPART SUPPLEMENTAL SCALE SQ SCH ×4 (06:27→21:00)
[2016-12-10 06:28] LABS: HEMO FLAGS AUTO DIFF
[2016-12-10 06:52] LABS: ALKALINE PHOSPHATASE 145 U/L (45-117); ALT (GPT) 93 U/L (12-78); ANION GAP 8 MEQ/L (5-15); AST (GOT) 123 U/L (15-37); BICARBONATE 24.1 MEQ/L (21.0-32.0); BLOOD UREA NITROGEN 11 MG/DL (7-18); CHLORIDE 105 MEQ/L (98-107); FERRITIN 595 NG/ML (26-388); GLOMERULAR FILTRATION RATE 114 ML/MIN (>89); MAGNESIUM 1.8 MG/DL (1.5-2.5); POTASSIUM 3.5 MEQ/L (3.5-5.1); SODIUM (NA) 137 MEQ/L (136-145); TOTAL BILIRUBIN ADULT 1.3 MG/DL (0.2-1.0); TRANSFERRIN IRON PROFILE 189 MG/DL (200-360)
[2016-12-10 07:30] LABS: PLATELET ESTIMATE SMEAR LOW (NORMAL); PLATELET MORPHOLOGY NORMAL (NORMAL); SCAN/DIFF AUTO DIFF CONFIRMED
[2016-12-10 08:00] VITALS: BP_SYST 123; BP_SYST 140; BP_DIAS 71; BP_DIAS 76; PULSE 64; PULSE 84; RESP 18; RESP 20; TEMP 97.9; TEMP 98.1; O2SAT 96; O2SAT 98
[2016-12-10] MEDS: SODIUM CHLORIDE 0.9% FLUSH 10 ML FLUSH IV FLUSH SCH ×2 (09:00→21:00)
[2016-12-10] MEDS: DOCUSATE SODIUM 100 MG CAP PO SCH ×2 (10:33→21:00)
[2016-12-10] MEDS: FOLIC ACID 1 MG TAB PO SCH (10:33)
[2016-12-10] MEDS: THIAMINE HCL 100 MG TAB PO SCH (10:33)
[2016-12-10 12:00] VITALS: BP 137/79; PULSE 63; RESP 17; TEMP 96.9; O2SAT 98
[2016-12-10 16:00] VITALS: BP 131/78; PULSE 58; RESP 19; TEMP 97.8; O2SAT 95
--- NOTE | 2016-12-10 16:03 | HHI.PR ---
Subjective Remarks Patient is calm still c/o visual hallucinations - says sees blurry things denies cp/sob/cough denies diarrhea vital signs stable Objective Vitals Vital Signs Date Time Temp Pulse Resp B/P Pulse Ox O2 Delivery O2 Flow Rate FiO2 12/10/16 12:00 96.9 63 17 137/79 98 12/10/16 08:00 97.9 84 18 123/71 96 12/10/16 00:00 97.4 62 20 144/74 99 12/09/16 21:37 99 21 12/09/16 20:00 97.0 57 18 151/72 100 12/09/16 16:00 96.5 61 17 156/76 98 I/O 12/09/16 12/09/16 12/09/16 12/10/16 12/10/16 12/10/16 07:00 15:00 23:00 07:00 15:00 23:00 Intake Total 998 ml 160 ml 240 ml 990 ml Output Total 700 ml 400 ml 600 ml Balance -700 ml 998 ml -240 ml 240 ml 390 ml Intake Oral 600 ml 160 ml 240 ml 440 ml IV Total 398 ml 550 ml Output Urine Total 700 ml 400 ml 600 ml # Voids 4 4 # Bowel Movements 0 0 0 0 Result Diagram: 12/10/16 0524 12/10/16 0524 Imaging Last Impressions Hand X-Ray 12/09/16 0000 Signed Impressions: Service Date/Time: Friday, December 09, 2016 09:48 - CONCLUSION: Chronic changes and no evidence for acute fracture. KMontez Chase MD Maxillofacial CT 12/05/161650 Signed Impressions: Service Date/Time: Monday, December 05, 2016 17:39 - CONCLUSION: 1. Right sphenoid sinus mucosal thickening. 2. Mandibular fractures are noted as above. Imtiaz Flores MD Head CT 12/05/161650 Signed Impressions: Service Date/Time: Monday, December 05, 2016 17:39 - CONCLUSION: Normal examination. Imtiaz Flores MD Cervical Spine CT 12/05/161650 Signed Impressions: Service Date/Time: Monday, December 05, 2016 17:39 - CONCLUSION: Mild degenerative changes without canal stenosis, fracture or listhesis. Imtiaz Flores MD Objective Remarks GENERAL: This is a very thin, malnourished patient, NAD, off restraints SKIN: No rashes, ecchymoses or lesions. Cool and dry. HEAD: Atraumatic. Normocephalic. No temporal or scalp tenderness. EYES: Pupils equal round and reactive. Extraocular motions intact. No scleral icterus. No injection or drainage. ENT: Nose without bleeding, purulent drainage or septal hematoma. Throat without erythema, tonsillar hypertrophy or exudate. Uvula midline. Airway patent. No oral deformity. NECK: Trachea midline. No JVD or lymphadenopathy. Supple, nontender, no meningeal signs. CARDIOVASCULAR: Regular rate and rhythm without murmurs, gallops, or rubs. RESPIRATORY: Clear to auscultation. Breath sounds equal bilaterally. No wheezes , rales, or rhonchi. GASTROINTESTINAL: Abdomen soft, non-tender, nondistended. No hepato-splenomegaly , or palpable masses. No guarding. MUSCULOSKELETAL: Extremities without clubbing, cyanosis, or edema. No joint tenderness, effusion, or edema noted. No calf tenderness. Negative Homans sign bilaterally. Right hand is dressed, dressing is C/D/I. NEUROLOGICAL: Awake and alert. Cranial nerves II through XII intact. Motor and sensory grossly within normal limits. Five out of 5 muscle strength in all muscle groups. Normal speech. No tremors observed. Procedures ORIF with close reduction to maxillomandibular fixation, right parasymphysis, left subcondylar mandibular KLS on 12/06/16. Medications and IVs Current Medications Medications (Trade) Dose Ordered Sig/Sixto Route Start Time Stop Time Status Last Admin (Zofran Inj) 4 mg Q6H PRN IVP 12/05/16 19:30 12/05/16 21:00 (Narcan Inj) 0.4 mg UNSCH PRN IV 12/05/16 19:30 (Romazicon Inj) 0.2 mg Q1M PRN IV PUSH 12/05/16 19:30 (Ativan) 1 mg Q4H PRN PO 12/05/16 19:30 12/08/16 12:45 (Ativan Inj) 1 mg Q4H PRN IV PUSH 12/05/16 19:30 12/08/16 09:59 (Ativan) 2 mg Q2H PRN PO 12/05/16 19:30 12/08/16 18:09 (Ativan Inj) 2 mg Q2H PRN IV PUSH 12/05/16 19:30 12/10/16 03:52 (Ativan Inj) 2 mg Q1H PRN IV PUSH 12/05/16 19:30 12/09/16 06:16 (Ativan Inj) 2 mg Q15M PRN IV PUSH 12/05/16 19:30 (Folate) 1 mg DAILY PO 12/05/16 20:00 12/10/16 10:33 (Vitamin B1) 100 mg DAILY PO 12/05/16 20:00 12/10/16 10:33 Enalaprilat 1.25 mg 1.25 mg Q6H PRN IV PUSH 12/06/16 11:00 (NS 1000 ml Inj) 1,000 ml @ 100 mls/hr Q10H IV 12/06/16 19:00 12/09/16 22:40 (NS Flush) 2 ml UNSCH PRN IV FLUSH 12/06/16 18:30 12/09/16 10:10 (NS Flush) 2 ml BID IV FLUSH 12/06/16 21:00 12/09/16 08:35 (Toradol Inj) 15 mg Q6H PRN IVP 12/06/16 18:30 12/11/16 18:29 12/08/16 21:46 (Dilaudid Pf Inj) 0.5 mg Q2H PRN IV 12/06/16 18:30 12/08/16 12:46 (Dilaudid Pf Inj) 1 mg Q2H PRN IV 12/06/16 18:30 12/07/16 17:47 (Colace) 100 mg BID PO 12/06/16 21:00 12/10/16 10:33 (Ambien) 5 mg HS PRN PO 12/06/16 18:30 12/08/16 21:45 (Benadryl) 25 mg Q6H PRN PO 12/06/16 18:30 (D50w (Vial) Inj) 25 ml UNSCH PRN IV PUSH 12/07/16 10:30 Glucagon 1 mg 1 mg UNSCH PRN OTHER 12/07/16 10:30 (Unasyn Inj/NS Inj) 100 ml @ 200 mls/hr Q6H IV 12/08/16 21:00 12/10/16 09:00 Urinary Catheter: No Vascular Central Line Catheter: No A/P Problem List: (1) Mandibular fracture ICD Code: S02.609A Status: Acute Plan: CT as described above shows a nondisplaced fracture of the mandible. Admited the patient to the medical/surgical floor Maxillofacial surgery consulte Patient is sp ORIF of mandible. Patient cleared for discharge by maxillofacial surgery. sp Clindamycin IV. (2) Hepatitis C ICD Code: B19.20 Status: Acute Plan: Liver f function tests show mild transaminitis. Continue to monitor LFTs. Patient had hepatitis profile done in 2014 which was positive for hepatitis C. CT abdomen and pelvis at the time did not show any liver abnormalities. 12/10 transaminitis worsening AST 84 -->119 --> 123, ALT 68 --> 81 --> 93, alk phos elevated but slightly better 182 --> 145. Continue to monitor LFTs. (3) Alcohol abuse ICD Code: F10.10 Status: Chronic Plan: With alcohol intoxication on admission with an alcohol level of 292. Patient is showing some tremors in the upper extremities. Vital signs stable. Patient with alcoholic withdrawal hallucinosis. Continue CIWA protocol, restraint as needed for agitation. (4) Tobacco abuse ICD Code: Z72.0 Status: Chronic Plan: Advised smoking cessation. Placed on nicotine patch. (5) Homelessness ICD Code: Z59.0 Status: Chronic Plan: manager infrastructure to assist. (6) Agitation ICD Code: R45.1 Status: Acute Plan: Continue Ativan PRN and restraints as needed. Agitation is likely secondary to alcohol withdrawal. (7) Hyperglycemia ICD Code: R73.9 Status: Acute Plan: Stress-induced. Hemoglobin A1c 4.5, diabetes ruled out. Blood sugar seems to be stable. Continue SSI with insulin NovoLog. Blood sugars improving. (8) Transaminitis ICD Code: R74.0 Status: Chronic Plan: Patient with increasing transaminases which it initially were trending down, today trending up. AST went up from 84-119, ALT went up from 68-81. Continue to monitor LFTs. Transaminitis likely secondary to hepatitis C. (9) Abscess of right hand ICD Code: L02.511 Status: Acute Plan: Appreciate hand surgery recommendations. The patient will need surgical treatment for the hand abscess. Continue IV Unasyn. (10) Thrombocytopenia ICD Code: D69.6 Status: Acute Plan: As per review of records the patient has chronic thrombocytopenia likely secondary to his alcohol ingestion. I will order hit antibody test and hold heparin subcutaneous for now. 12/10 Platelets trending up. 72 - 89. continue to monitor platelets. (11) Leukopenia ICD Code: D72.819 Status: Acute Plan: The patient's WBC count came down to 3.6 from 6.8. Likely secondary to stress and/or alcohol intake. The patient has had leukopenia in the past. Continue to monitor CBC with differential. (12) Anemia ICD Code: D64.9 Status: Acute Plan: Macrocytic anemia. B12 and folate within normal range. Iron studies normal. Possibly secondary to liver disease. I will check B12 and folate. I will also check iron studies and stool guaiac. Assessment and Plan GI prophylaxis: PPI. DVT prophylaxis: SCDs, hold heparin subcutaneously given dropping platelets. Discharge Planning Continue to monitor in the medical floor. The patient is incapable of making medical decisions. He cannot sign himself out. Problem Qualifiers (1) Mandibular fracture: Qualified Code: S02.611A - Closed fracture of right condylar process of mandible, initial encounter (2) Hepatitis C: Qualified Code: B18.2 - Chronic hepatitis C without hepatic coma (3) Leukopenia: (4) Anemia: Qualified Code: D64.9 - Anemia, unspecified type Guanaco Miguel MD Dec 10, 2016 16:03
[2016-12-10] MEDS: SODIUM CHLOR 0.9% 1000 ML INJ 1,000 ML IV SCH ×2 (16:25→23:00)
[2016-12-11] VITALS: BP 132/80; PULSE 68; RESP 20; TEMP 97.4; O2SAT 97
[2016-12-11] MEDS: AMPICILLIN-SULBACTAM INJ 3 GM in SODIUM CHLORIDE 0.9% INJ 100 ML IV SCH ×4 (02:15→22:03)
[2016-12-11] MEDS: INSULIN ASPART SUPPLEMENTAL SCALE SQ SCH ×4 (06:46→21:00)
[2016-12-11 08:00] VITALS: BP 126/59; PULSE 62; RESP 16; TEMP 97.2; O2SAT 96
[2016-12-11] MEDS: THIAMINE HCL 100 MG TAB PO SCH (09:56)
[2016-12-11] MEDS: DOCUSATE SODIUM 100 MG CAP PO SCH ×2 (09:56→22:03)
[2016-12-11] MEDS: FOLIC ACID 1 MG TAB PO SCH (09:56)
[2016-12-11] MEDS: KETOROLAC TROMETHAMINE 30 MG/ML (IVP) VIAL IVP PRN ×2 (09:59→18:10)
[2016-12-11] MEDS: SODIUM CHLOR 0.9% 1000 ML INJ 1,000 ML IV SCH ×2 (10:02→18:10)
[2016-12-11] MEDS: SODIUM CHLORIDE 0.9% FLUSH 10 ML FLUSH IV FLUSH SCH ×2 (10:02→21:00)
[2016-12-11 12:00] VITALS: BP 140/72; PULSE 58; RESP 16; TEMP 96.6; O2SAT 100
--- NOTE | 2016-12-11 15:16 | HHI.PR ---
Subjective Remarks Jaw Pain and global malaise. No drastic changes compared to prior day. No new complaints from the patient. He is still needing wound treatment of his hand. Objective Vital Signs Date Time Temp Pulse Resp B/P Pulse Ox O2 Delivery O2 Flow Rate FiO2 12/11/16 12:00 96.6 58 16 140/72 100 12/11/16 08:00 97.2 62 16 126/59 96 12/11/16 00:00 97.4 68 20 132/80 97 12/10/16 16:00 97.8 58 19 131/78 95 I/O 12/10/16 12/10/16 12/10/16 12/11/16 12/11/16 12/11/16 07:00 15:00 23:00 07:00 15:00 23:00 Intake Total 240 ml 990 ml 240 ml Output Total 600 ml 450 ml Balance 240 ml 390 ml 240 ml -450 ml Intake Oral 240 ml 440 ml 240 ml IV Total 550 ml Output Urine Total 600 ml 450 ml # Voids 4 2 2 # Bowel Movements 0 0 1 Result Diagram: 12/10/16 0524 12/10/16 0524 Imaging Last Impressions Hand X-Ray 12/09/16 0000 Signed Impressions: Service Date/Time: Friday, December 09, 2016 09:48 - CONCLUSION: Chronic changes and no evidence for acute fracture. Yvonne Chase MD Maxillofacial CT 12/05/161650 Signed Impressions: Service Date/Time: Monday, December 05, 2016 17:39 - CONCLUSION: 1. Right sphenoid sinus mucosal thickening. 2. Mandibular fractures are noted as above. Imtiaz Flores MD Head CT 12/05/161650 Signed Impressions: Service Date/Time: Monday, December 05, 2016 17:39 - CONCLUSION: Normal examination. Imtiaz Flores MD Cervical Spine CT 12/05/161650 Signed Impressions: Service Date/Time: Monday, December 05, 2016 17:39 - CONCLUSION: Mild degenerative changes without canal stenosis, fracture or listhesis. Imtiaz Flores MD Procedures orif w/mmf of bilateral mandible fractures Objective Remarks GENERAL: SKIN: Warm and dry. HEAD: Normocephalic. MOUTH: Broken lower teeth, superficial lacerations and bruising at lower lip EYES: No scleral icterus. No injection or drainage. NECK: Supple, trachea midline. No JVD or lymphadenopathy. CARDIOVASCULAR: Regular rate and rhythm without murmurs, gallops, or rubs. RESPIRATORY: Breath sounds equal bilaterally. No accessory muscle use. GASTROINTESTINAL: Abdomen soft, non-tender, nondistended. MUSCULOSKELETAL: No cyanosis, or edema. Right hand is bandaged. BACK: Nontender without obvious deformity. No CVA tenderness. Medications and IVs Administered Medications Medications (Trade) Dose Ordered Sig/Sixto Route PRN Reason Start Time Stop Time Status Last Admin Dose Admin Ondansetron HCl (Zofran Inj) 4 mg Q6H PRN IVP NAUSEA OR VOMITING 12/05/16 19:30 12/05/16 21:00 Lorazepam (Ativan) 1 mg Q4H PRN PO CIWA 8 - 10 12/05/16 19:30 12/08/16 12:45 Lorazepam (Ativan Inj) 1 mg Q4H PRN IV PUSH CIWA 8 - 10 12/05/16 19:30 12/08/16 09:59 Lorazepam (Ativan) 2 mg Q2H PRN PO CIWA 11-14 12/05/16 19:30 12/08/16 18:09 Lorazepam (Ativan Inj) 2 mg Q2H PRN IV PUSH CIWA 11-14 12/05/16 19:30 12/10/16 16:26 Lorazepam (Ativan Inj) 2 mg Q1H PRN IV PUSH CIWA 15-20 12/05/16 19:30 12/09/16 06:16 Folic Acid (Folate) 1 mg DAILY PO 12/05/16 20:00 12/11/16 09:56 Thiamine HCl 100 mg 100 mg DAILY PO 12/05/16 20:00 12/11/16 09:56 Sodium Chloride (NS 1000 ml Inj) 1,000 ml @ 100 mls/hr Q10H IV 12/06/16 19:00 12/11/16 10:02 Sodium Chloride (NS Flush) 2 ml UNSCH PRN IV FLUSH FLUSH AFTER USING IV ACCESS 12/06/16 18:30 12/09/16 10:10 Sodium Chloride (NS Flush) 2 ml BID IV FLUSH 12/06/16 21:00 12/11/16 10:02 Ketorolac Tromethamine (Toradol Inj) 15 mg Q6H PRN IVP PAIN SCALE 1 TO 5 12/06/16 18:30 12/11/16 18:29 12/11/16 09:59 Hydromorphone HCl (Dilaudid Pf Inj) 0.5 mg Q2H PRN IV PAIN SCALE 6 TO 10 12/06/16 18:30 12/08/16 12:46 Hydromorphone HCl (Dilaudid Pf Inj) 1 mg Q2H PRN IV BREAKTHROUGH PAIN 12/06/16 18:30 12/07/16 17:47 Docusate Sodium (Colace) 100 mg BID PO 12/06/16 21:00 12/11/16 09:56 Zolpidem Tartrate 5 mg 5 mg HS PRN PO INSOMNIA 12/06/16 18:30 12/08/16 21:45 Ampicillin Sodium/ Sulbactam Sodium/ Sodium Chloride (Unasyn Inj/NS Inj) 100 ml @ 200 mls/hr Q6H IV 12/08/16 21:00 12/11/16 09:56 A/P Problem List: (1) Abscess of right hand ICD Code: L02.511 Assessment & Plan: Hand Surgeon is following. Continue IV antibiotics and debridement as needed. (2) Mandibular fracture ICD Code: S02.609A Assessment & Plan: Post op. Needs more healing time prior to solid foods. Pain treatments in place. Surgeon following. (3) Transaminitis ICD Code: R74.0 Assessment & Plan: Follow LFTs (4) Homelessness ICD Code: Z59.0 Assessment & Plan: Patient will need to have greater functionality prior to discharge as access to self-care options may be limited. (5) Tobacco abuse ICD Code: Z72.0 Assessment & Plan: Nicoderm patch (6) Alcohol abuse ICD Code: F10.10 Assessment & Plan: No further DTs (7) Cellulitis ICD Code: L03.90 Assessment & Plan: No change in treatment. Continue antibiotics. Hand surgeon following also. Problem Qualifiers (1) Mandibular fracture: Qualified Code: S02.611A - Closed fracture of right condylar process of mandible, initial encounter Joni Vazquez MD Dec 11, 2016 15:16
[2016-12-11 16:00] VITALS: BP 119/57; PULSE 65; RESP 16; TEMP 97.9; O2SAT 96
[2016-12-11 16:05] LABS: HEPARIN AB OD 0.054 O.D. (0.000-0.300); HEPARIN INDUCED PLATELET AB NEGATIVE (NEGATIVE)
[2016-12-11 20:00] VITALS: BP 125/71; PULSE 58; RESP 16; TEMP 97.9; O2SAT 99
[2016-12-11] MEDS: HYDROmorphone HCL PF 1 MG/ML VIAL IV PRN (22:11)
[2016-12-12] VITALS: BP 135/64; PULSE 56; RESP 16; TEMP 97.2; O2SAT 96
[2016-12-12] MEDS: AMPICILLIN-SULBACTAM INJ 3 GM in SODIUM CHLORIDE 0.9% INJ 100 ML IV SCH ×4 (02:25→22:32)
[2016-12-12] MEDS: SODIUM CHLOR 0.9% 1000 ML INJ 1,000 ML IV SCH ×2 (05:02→16:05)
[2016-12-12 06:11] LABS: ALT (GPT) 108 U/L (12-78); ANION GAP 6 MEQ/L (5-15); AST (GOT) 122 U/L (15-37); BICARBONATE 25.2 MEQ/L (21.0-32.0); BLOOD UREA NITROGEN 13 MG/DL (7-18); CHLORIDE 109 MEQ/L (98-107); GLOMERULAR FILTRATION RATE 102 ML/MIN (>89); POTASSIUM 3.8 MEQ/L (3.5-5.1); SODIUM (NA) 140 MEQ/L (136-145)
[2016-12-12 06:13] LABS: ALKALINE PHOSPHATASE 127 U/L (45-117); TOTAL BILIRUBIN ADULT 0.7 MG/DL (0.2-1.0)
[2016-12-12] MEDS: HYDROmorphone HCL PF 1 MG/ML VIAL IV PRN ×2 (06:17→08:41)
[2016-12-12] MEDS: INSULIN ASPART SUPPLEMENTAL SCALE SQ SCH ×2 (06:19→11:00)
[2016-12-12 08:00] VITALS: BP 137/65; PULSE 58; RESP 18; TEMP 96.9; O2SAT 99
[2016-12-12] MEDS: THIAMINE HCL 100 MG TAB PO SCH (08:42)
[2016-12-12] MEDS: FOLIC ACID 1 MG TAB PO SCH (08:42)
[2016-12-12] MEDS: DOCUSATE SODIUM 100 MG CAP PO SCH ×2 (08:42→22:32)
[2016-12-12] MEDS: SODIUM CHLORIDE 0.9% FLUSH 10 ML FLUSH IV FLUSH SCH ×2 (08:45→21:00)
--- NOTE | 2016-12-12 09:53 | HHI.PR ---
Subjective Remarks Pain control improved. Doing PT when seen. LFT elevation may be related to Zosyn. Given the stability of LFT elevation and suspected liver disease related to chronic alcohol abuse, zosyn will be continued for now with monitoring of LFTs. Cessation will be considered if further increases are seen. Objective Vital Signs Date Time Temp Pulse Resp B/P Pulse Ox O2 Delivery O2 Flow Rate FiO2 12/12/16 08:00 96.9 58 18 137/65 99 12/12/16 00:00 97.2 56 16 135/64 96 12/11/16 20:00 97.9 58 16 125/71 99 12/11/16 16:00 97.9 65 16 119/57 96 12/11/16 12:00 96.6 58 16 140/72 100 I/O 12/11/16 12/11/16 12/11/16 12/12/16 12/12/16 12/12/16 07:00 15:00 23:00 07:00 15:00 23:00 Intake Total 240 ml 1200 ml 2286 ml 1067 ml Output Total 450 ml 900 ml Balance 240 ml 750 ml 2286 ml 167 ml Intake Oral 240 ml 1200 ml 240 ml IV Total 2286 ml 827 ml Output Urine Total 450 ml 900 ml # Voids 2 7 # Bowel Movements 1 3 0 Result Diagram: 12/10/16 0524 12/12/16 0506 Procedures orif w/mmf of bilateral mandible fractures Objective Remarks GENERAL: SKIN: Warm and dry. HEAD: Normocephalic. MOUTH: Broken lower teeth, superficial lacerations and bruising at lower lip EYES: No scleral icterus. No injection or drainage. NECK: Supple, trachea midline. No JVD or lymphadenopathy. CARDIOVASCULAR: Regular rate and rhythm without murmurs, gallops, or rubs. RESPIRATORY: Breath sounds equal bilaterally. No accessory muscle use. GASTROINTESTINAL: Abdomen soft, non-tender, nondistended. MUSCULOSKELETAL: No cyanosis, or edema. Right hand is bandaged. BACK: Nontender without obvious deformity. No CVA tenderness. A/P Problem List: (1) Abscess of right hand ICD Code: L02.511 Assessment & Plan: Hand Surgeon is following. Continue IV antibiotics and debridement as needed. (2) Mandibular fracture ICD Code: S02.609A Assessment & Plan: Post op. Needs more healing time prior to solid foods. Pain treatments in place. Surgeon following. (3) Transaminitis ICD Code: R74.0 Assessment & Plan: Likely reactive/related to zosyn No change at this point given stability in elevation Follow LFTs (4) Homelessness ICD Code: Z59.0 Assessment & Plan: Patient will need to have greater functionality prior to discharge as access to self-care options may be limited. (5) Tobacco abuse ICD Code: Z72.0 Assessment & Plan: Nicoderm patch (6) Alcohol abuse ICD Code: F10.10 Assessment & Plan: No further DTs (7) Cellulitis ICD Code: L03.90 Assessment & Plan: No change in treatment. Continue antibiotics. Hand surgeon following also. Problem Qualifiers (1) Mandibular fracture: Qualified Code: S02.611A - Closed fracture of right condylar process of mandible, initial encounter Joni Vazquez MD Dec 12, 2016 9:53 am
[2016-12-12 12:00] VITALS: BP 155/74; PULSE 56; RESP 17; TEMP 96.8; O2SAT 97
[2016-12-12] MEDS: oxyCODONE/ACETAMINOPHEN 5 MG/325 MG TAB PO PRN ×2 (12:12→22:32)
[2016-12-12 16:00] VITALS: BP 142/71; PULSE 53; RESP 18; TEMP 96.7; O2SAT 97
[2016-12-12 20:00] VITALS: BP 124/60; PULSE 60; RESP 16; TEMP 97.5; O2SAT 97
[2016-12-13] VITALS: BP 148/70; PULSE 55; RESP 18; TEMP 97.5; O2SAT 98
[2016-12-13] MEDS: SODIUM CHLOR 0.9% 1000 ML INJ 1,000 ML IV SCH ×3 (01:03→21:30)
[2016-12-13] MEDS: AMPICILLIN-SULBACTAM INJ 3 GM in SODIUM CHLORIDE 0.9% INJ 100 ML IV SCH ×4 (02:18→21:25)
[2016-12-13] MEDS: oxyCODONE/ACETAMINOPHEN 5 MG/325 MG TAB PO PRN ×4 (06:40→21:56)
[2016-12-13 08:00] VITALS: BP 142/68; PULSE 50; RESP 17; TEMP 97.8; O2SAT 96
[2016-12-13] MEDS: SODIUM CHLORIDE 0.9% FLUSH 10 ML FLUSH IV FLUSH SCH ×2 (08:58→21:30)
[2016-12-13] MEDS: DOCUSATE SODIUM 100 MG CAP PO SCH ×2 (08:59→21:25)
[2016-12-13] MEDS: THIAMINE HCL 100 MG TAB PO SCH (08:59)
[2016-12-13] MEDS: FOLIC ACID 1 MG TAB PO SCH (08:59)
[2016-12-13 12:00] VITALS: BP 139/75; PULSE 55; RESP 18; TEMP 96.6; O2SAT 96
--- NOTE | 2016-12-13 15:42 | HHI.PR ---
Subjective Remarks More alert. No confussion. Pain controlled. Objective Vital Signs Date Time Temp Pulse Resp B/P Pulse Ox O2 Delivery O2 Flow Rate FiO2 12/13/16 12:00 96.6 55 18 139/75 96 12/13/16 08:00 97.8 50 17 142/68 96 12/13/16 00:00 97.5 55 18 148/70 98 12/12/16 20:00 97.5 60 16 124/60 97 12/12/16 16:00 96.7 53 18 142/71 97 I/O 12/12/16 12/12/16 12/12/16 12/13/16 12/13/16 12/13/16 07:00 15:00 23:00 07:00 15:00 23:00 Intake Total 1067 ml 1200 ml 905 ml 980 ml 1403 ml Output Total 900 ml 350 ml 1375 ml 1000 ml 700 ml Balance 167 ml 850 ml -470 ml -20 ml 703 ml Intake Oral 240 ml 480 ml 240 ml 600 ml IV Total 827 ml 720 ml 905 ml 740 ml 803 ml Output Urine Total 900 ml 350 ml 1375 ml 1000 ml 700 ml # Bowel Movements 0 0 0 0 0 Result Diagram: 12/10/16 0524 12/12/16 0506 Procedures orif w/mmf of bilateral mandible fractures Objective Remarks GENERAL: SKIN: Warm and dry. HEAD: Normocephalic. MOUTH: Broken lower teeth, superficial lacerations and bruising at lower lip EYES: No scleral icterus. No injection or drainage. NECK: Supple, trachea midline. No JVD or lymphadenopathy. CARDIOVASCULAR: Regular rate and rhythm without murmurs, gallops, or rubs. RESPIRATORY: Breath sounds equal bilaterally. No accessory muscle use. GASTROINTESTINAL: Abdomen soft, non-tender, nondistended. MUSCULOSKELETAL: No cyanosis, or edema. Right hand is bandaged. BACK: Nontender without obvious deformity. No CVA tenderness. A/P Problem List: (1) Abscess of right hand ICD Code: L02.511 Assessment & Plan: Continue IV antibiotics Daily dressing changes (2) Mandibular fracture ICD Code: S02.609A Assessment & Plan: Post op. Needs more healing time prior to solid foods. Minimize mastication of food for 3 weeks more Pain treatments in place. Surgeon following. (3) Transaminitis ICD Code: R74.0 Assessment & Plan: Likely reactive/related to zosyn No change at this point given stability in elevation Follow LFTs (4) Homelessness ICD Code: Z59.0 Assessment & Plan: Patient will need to have greater functionality prior to discharge as access to self-care options may be limited. (5) Tobacco abuse ICD Code: Z72.0 Assessment & Plan: Nicoderm patch (6) Alcohol abuse ICD Code: F10.10 Assessment & Plan: No further DTs (7) Cellulitis ICD Code: L03.90 Assessment & Plan: No change in treatment. Continue antibiotics. Hand surgeon following also. Problem Qualifiers (1) Mandibular fracture: Qualified Code: S02.611A - Closed fracture of right condylar process of mandible, initial encounter Joni Vazquez MD Dec 13, 2016 3:42 pm
[2016-12-13 16:00] VITALS: BP 141/78; PULSE 55; RESP 18; TEMP 98.5; O2SAT 97
[2016-12-13 20:00] VITALS: BP 152/71; PULSE 50; RESP 16; TEMP 97.7; O2SAT 98
[2016-12-13] MEDS: ONDANSETRON HCL 4 MG/2 ML VIAL IVP PRN (21:25)
[2016-12-13 23:41] VITALS: BP 165/76; PULSE 58; RESP 16; TEMP 97.5; O2SAT 97
[2016-12-14] MEDS: AMPICILLIN-SULBACTAM INJ 3 GM in SODIUM CHLORIDE 0.9% INJ 100 ML IV SCH ×4 (03:58→21:00)
[2016-12-14] MEDS: SODIUM CHLOR 0.9% 1000 ML INJ 1,000 ML IV SCH ×2 (03:58→16:12)
[2016-12-14] MEDS: oxyCODONE/ACETAMINOPHEN 5 MG/325 MG TAB PO PRN ×2 (05:10→22:06)
[2016-12-14 08:00] VITALS: BP 132/63; PULSE 49; RESP 14; TEMP 97.3; O2SAT 97
--- NOTE | 2016-12-14 08:08 | HHI.PR ---
Subjective Remarks Complaint of increased jaw pain and swelling, mostly at the anterior aspect ( under his chin). Improvemet in his right hand wound is present. He does not yet feel he could function at his regular baseline (he is homeless and will need to be functional enough to self sustain at discharge). Objective Vital Signs Date Time Temp Pulse Resp B/P Pulse Ox O2 Delivery O2 Flow Rate FiO2 12/14/16 06:26 18 12/13/16 23:41 97.5 58 16 165/76 97 12/13/16 20:00 97.7 50 16 152/71 98 12/13/16 16:00 98.5 55 18 141/78 97 12/13/16 12:00 96.6 55 18 139/75 96 I/O 12/13/16 12/13/16 12/13/16 12/14/16 12/14/16 12/14/16 07:00 15:00 23:00 07:00 15:00 23:00 Intake Total 980 ml 1403 ml 620 ml 240 ml Output Total 1000 ml 700 ml 900 ml 300 ml Balance -20 ml 703 ml -280 ml -60 ml Intake Oral 240 ml 600 ml 620 ml 240 ml IV Total 740 ml 803 ml Output Urine Total 1000 ml 700 ml 900 ml 300 ml # Bowel Movements 0 0 0 0 Result Diagram: 12/10/16 0524 12/12/16 0506 Procedures orif w/mmf of bilateral mandible fractures Objective Remarks GENERAL: SKIN: Warm and dry. HEAD: Normocephalic. MOUTH: Broken lower teeth, superficial lacerations and bruising at lower lip EYES: No scleral icterus. No injection or drainage. NECK: Supple, trachea midline. No JVD or lymphadenopathy. CARDIOVASCULAR: Regular rate and rhythm without murmurs, gallops, or rubs. RESPIRATORY: Breath sounds equal bilaterally. No accessory muscle use. GASTROINTESTINAL: Abdomen soft, non-tender, nondistended. MUSCULOSKELETAL: No cyanosis, or edema. Right hand is bandaged. BACK: Nontender without obvious deformity. No CVA tenderness. A/P Problem List: (1) Abscess of right hand ICD Code: L02.511 Assessment & Plan: Continue IV antibiotics Will change to PO treatment trial tomorrow (for one more week on PO treatment) Daily dressing changes (2) Mandibular fracture ICD Code: S02.609A Assessment & Plan: Post op. Needs more healing time prior to solid/harder foods. Minimize mastication of food for 3 weeks more Pain treatments in place. (3) Transaminitis ICD Code: R74.0 Assessment & Plan: Likely reactive/related to zosyn No change at this point given stability in elevation Follow LFTs (4) Homelessness ICD Code: Z59.0 Assessment & Plan: Patient will need to have greater functionality prior to discharge as access to self-care options may be limited. (5) Tobacco abuse ICD Code: Z72.0 Assessment & Plan: off nicotine patch (6) Alcohol abuse ICD Code: F10.10 Assessment & Plan: Off sedatives No further DTs (7) Cellulitis ICD Code: L03.90 Assessment & Plan: No change in treatment. Continue antibiotics. Problem Qualifiers (1) Mandibular fracture: Qualified Code: S02.611A - Closed fracture of right condylar process of mandible, initial encounter Joni Vazquez MD Dec 14, 2016 08:08
[2016-12-14] MEDS: THIAMINE HCL 100 MG TAB PO SCH (08:42)
[2016-12-14] MEDS: FOLIC ACID 1 MG TAB PO SCH (08:42)
[2016-12-14] MEDS: DOCUSATE SODIUM 100 MG CAP PO SCH ×2 (08:42→21:59)
[2016-12-14] MEDS: SODIUM CHLORIDE 0.9% FLUSH 10 ML FLUSH IV FLUSH SCH ×2 (08:42→21:00)
[2016-12-14 12:00] VITALS: BP 151/75; PULSE 55; RESP 16; TEMP 97.6; O2SAT 99
[2016-12-14 16:00] VITALS: BP 142/74; PULSE 62; RESP 16; TEMP 96.9; O2SAT 100
[2016-12-14] MEDS: SODIUM CHLORIDE 0.9% FLUSH 10 ML FLUSH IV FLUSH PRN (16:10)
--- NOTE | 2016-12-14 17:17 | HHI.PR ---
Subjective Remarks right hand infection follow up complains of no pain getting daily dressing changes no fever or tingling or numbness Objective Vital Signs Date Time Temp Pulse Resp B/P Pulse Ox O2 Delivery O2 Flow Rate FiO2 12/14/16 16:00 96.9 62 16 142/74 100 12/14/16 12:00 97.6 55 16 151/75 99 12/14/16 08:00 97.3 49 14 132/63 97 12/14/16 06:26 18 12/13/16 23:41 97.5 58 16 165/76 97 12/13/16 20:00 97.7 50 16 152/71 98 I/O 12/13/16 12/13/16 12/13/16 12/14/16 12/14/16 12/14/16 07:00 15:00 23:00 07:00 15:00 23:00 Intake Total 980 ml 1403 ml 620 ml 240 ml 800 ml Output Total 1000 ml 700 ml 900 ml 300 ml 1200 ml Balance -20 ml 703 ml -280 ml -60 ml -400 ml Intake Oral 240 ml 600 ml 620 ml 240 ml 800 ml IV Total 740 ml 803 ml Output Urine Total 1000 ml 700 ml 900 ml 300 ml 1200 ml # Bowel Movements 0 0 0 0 0 right hand: healing wound over the dorsal aspect no signs of infection able to make a fist intact sensation left hand: healed wounds able to make a fist intact sensation Result Diagram: 12/10/16 0524 12/12/16 0506 Procedures orif w/mmf of bilateral mandible fractures Assessment and Plan Assessment and Plan 61 year old male with right hand infection doing better Plan: continue daily dressing changes no active surgical management needed cleared from hand surgery Enrique Solorzano MD Dec 14, 2016 17:17
[2016-12-14 20:00] VITALS: BP 138/66; PULSE 60; RESP 18; TEMP 98.5; O2SAT 99
[2016-12-14] MEDS: ZOLPIDEM TARTRATE 5 MG TAB PO PRN (23:17)
[2016-12-15] VITALS: BP 140/67; PULSE 60; RESP 18; TEMP 98.5; O2SAT 96
[2016-12-15] MEDS: SODIUM CHLOR 0.9% 1000 ML INJ 1,000 ML IV SCH (02:56)
[2016-12-15] MEDS: AMPICILLIN-SULBACTAM INJ 3 GM in SODIUM CHLORIDE 0.9% INJ 100 ML IV SCH (02:56)
[2016-12-15] MEDS: oxyCODONE/ACETAMINOPHEN 5 MG/325 MG TAB PO PRN (06:21)
[2016-12-15 08:00] VITALS: BP 138/72; PULSE 54; RESP 18; TEMP 96.9; O2SAT 97
--- NOTE | 2016-12-15 08:11 | HHI.PR ---
Subjective Remarks Plan for discharge on Saturday if stability continues. No recent confussion/ hallucinations. He will be transitioned off IV fluids, changed to a PO antibiotic, changed to PO [place], and monitored. Today he complains of constipation. Objective Vital Signs Date Time Temp Pulse Resp B/P Pulse Ox O2 Delivery O2 Flow Rate FiO2 12/15/16 00:00 98.5 60 18 140/67 96 12/14/16 20:00 98.5 60 18 138/66 99 12/14/16 16:00 96.9 62 16 142/74 100 12/14/16 12:00 97.6 55 16 151/75 99 I/O 12/14/16 12/14/16 12/14/16 12/15/16 12/15/16 12/15/16 07:00 15:00 23:00 07:00 15:00 23:00 Intake Total 240 ml 800 ml 1034 ml 797 ml Output Total 300 ml 1200 ml 625 ml 1000 ml Balance -60 ml -400 ml 409 ml -203 ml Intake Oral 240 ml 800 ml 360 ml 360 ml IV Total 674 ml 437 ml Output Urine Total 300 ml 1200 ml 625 ml 1000 ml # Bowel Movements 0 0 0 Result Diagram: 12/12/16 0506 Procedures orif w/mmf of bilateral mandible fractures Objective Remarks GENERAL: SKIN: Warm and dry. HEAD: Normocephalic. MOUTH: Broken lower teeth, superficial lacerations and bruising at lower lip EYES: No scleral icterus. No injection or drainage. NECK: Supple, trachea midline. No JVD or lymphadenopathy. CARDIOVASCULAR: Regular rate and rhythm without murmurs, gallops, or rubs. RESPIRATORY: Breath sounds equal bilaterally. No accessory muscle use. GASTROINTESTINAL: Abdomen soft, non-tender, nondistended. MUSCULOSKELETAL: No cyanosis, or edema. Right hand is bandaged. BACK: Nontender without obvious deformity. No CVA tenderness. Medications and IVs Administered Medications Medications (Trade) Dose Ordered Sig/Sixto Route PRN Reason Start Time Stop Time Status Last Admin Dose Admin Ondansetron HCl (Zofran Inj) 4 mg Q6H PRN IVP NAUSEA OR VOMITING 12/05/16 19:30 12/13/16 21:25 Folic Acid (Folate) 1 mg DAILY PO 12/05/16 20:00 12/14/16 08:42 Thiamine HCl (Vitamin B1) 100 mg DAILY PO 12/05/16 20:00 12/14/16 08:42 Sodium Chloride (NS Flush) 2 ml UNSCH PRN IV FLUSH FLUSH AFTER USING IV ACCESS 12/06/16 18:30 12/14/16 16:10 Sodium Chloride (NS Flush) 2 ml BID IV FLUSH 12/06/16 21:00 12/13/16 21:30 Docusate Sodium (Colace) 100 mg BID PO 12/06/16 21:00 12/14/16 21:59 Zolpidem Tartrate (Ambien) 5 mg HS PRN PO INSOMNIA 12/06/16 18:30 12/14/16 23:17 A/P Problem List: (1) Abscess of right hand ICD Code: L02.511 Assessment & Plan: CHange to PO Bactrim PRN pain treatment Daily dressing changes (2) Mandibular fracture ICD Code: S02.609A Assessment & Plan: Post op. PRN pain treatments Follow clinically for stability on soft diet Pain treatments in place. (3) Transaminitis ICD Code: R74.0 Assessment & Plan: Zosyn now transitioned to bactrim Follow LFTs in AM (4) Homelessness ICD Code: Z59.0 Assessment & Plan: Patient will need to have greater functionality prior to discharge as access to self-care options may be limited. (5) Tobacco abuse ICD Code: Z72.0 Assessment & Plan: off nicotine patch (6) Alcohol abuse ICD Code: F10.10 Assessment & Plan: Off sedatives No further DTs (7) Cellulitis ICD Code: L03.90 Assessment & Plan: No change in treatment. Continue antibiotics. Problem Qualifiers (1) Mandibular fracture: Qualified Code: S02.611A - Closed fracture of right condylar process of mandible, initial encounter Joni Vazquez MD Dec 15, 2016 8:11 am
[2016-12-15] MEDS: SODIUM CHLORIDE 0.9% FLUSH 10 ML FLUSH IV FLUSH SCH ×2 (08:50→20:59)
[2016-12-15] MEDS: FOLIC ACID 1 MG TAB PO SCH (08:52)
[2016-12-15] MEDS: THIAMINE HCL 100 MG TAB PO SCH (08:52)
[2016-12-15] MEDS: DOCUSATE SODIUM 100 MG CAP PO SCH ×2 (08:52→20:59)
[2016-12-15] MEDS ORDERED: ACETAMINOPHEN/HYDROcodone 325 MG/5 MG TAB PO PRN (09:00)
[2016-12-15] MEDS ORDERED: GLYCERIN ADULT 2 GM SUPP RECTAL PRN (09:00)
[2016-12-15] MEDS: SULFAMETHOXAZOLE-TRIMETHOPRIM DS 800-160 MG TAB PO SCH (09:00)
[2016-12-15] MEDS ORDERED: MAGNESIUM CITRATE SOLN 300 ML BTL PO ONE (09:00)
[2016-12-15 12:00] VITALS: BP 140/68; PULSE 56; RESP 18; TEMP 98.3; O2SAT 96
[2016-12-15 16:00] VITALS: BP 160/77; PULSE 62; RESP 20; TEMP 99.6; O2SAT 96
[2016-12-15] MEDS: ONDANSETRON HCL 4 MG/2 ML VIAL IVP PRN (19:32)
[2016-12-15 20:00] VITALS: BP 133/60; PULSE 75; RESP 22; TEMP 102.4; O2SAT 96
[2016-12-15] MEDS ORDERED: ACETAMINOPHEN 325 MG TAB PO PRN (21:15)
--- NOTE | 2016-12-15 21:39 | RADRPT ---
EXAM DATE/TIME: 12/15/2016 21:17 [place] COMPARISON: CHEST SINGLE AP, September 30, 2016, 15:17. INDICATIONS : Shortness of breath, cough, and fever. MEDICAL HISTORY : Cardiovascular disease. Hypertension. Hepatitis C. SURGICAL HISTORY : None. ENCOUNTER: Subsequent ACUITY: 2 days PAIN SCORE: 0/10 LOCATION: Bilateral chest. FINDINGS: A single view of the chest demonstrates the lungs to be symmetrically aerated without evidence of mas s, infiltrate or effusion. The cardiomediastinal contours are unremarkable. Healed fractures of the lateral left 7th and 8th ribs and the posterolateral 9th rib. Stable appearance to the displaced he aled fracture left mid shaft clavicle. CONCLUSION: The lungs are clear. Bradley Macdonald MD on December 15, 2016 at 21:36 Board Certified Radiologist. This report was verified electronically.
[2016-12-15 22:20] VITALS: TEMP 100.1
[2016-12-15 23:08] LABS: BASOPHIL % 0.5 % (0.0-2.0); EOSINOPHIL % 0.5 % (0.0-4.0); HEMATOCRIT 37.6 % (39.0-51.0); LYMPH % 12.6 % (9.0-44.0); LYMPHOCYTE # 0.8 TH/MM3 (1.0-4.8); MEAN CELL VOLUME 99.5 FL (80.0-100.0); MEAN CORPUSCULAR HEMOGLOBIN 33.9 PG (27.0-34.0); MEAN CORPUSCULAR HGB CONC 34.1 % (32.0-36.0); MONO % 5.8 % (0.0-8.0); NEUT % 80.6 % (16.0-70.0); PLATELET COUNT 98 TH/MM3 (150-450); RED BLOOD COUNT 3.78 MIL/MM3 (4.50-5.90); WHITE BLOOD COUNT 6.2 TH/MM3 (4.0-11.0)
[2016-12-15 23:35] LABS: BLOOD, URINE NEG (NEG); COMMENT (UR) CULT NOT INDICATED; CULTURE IF INDICATED CULT NOT INDICATED; GLUCOSE,URINE NEG (NEG); KETONE, URINE NEG (NEG); NITRITE,URINE NEG (NEG); URINE COLOR YELLOW (YELLW/STRAW)
[2016-12-15 23:45] LABS: HEMO FLAGS AUTO DIFF
[2016-12-15 23:52] LABS: ALT (GPT) 122 U/L (12-78); ANION GAP 6 MEQ/L (5-15); AST (GOT) 116 U/L (15-37); BICARBONATE 26.6 MEQ/L (21.0-32.0); BLOOD UREA NITROGEN 12 MG/DL (7-18); CHLORIDE 104 MEQ/L (98-107); GLOMERULAR FILTRATION RATE 79 ML/MIN (>89); POTASSIUM 4.2 MEQ/L (3.5-5.1); SODIUM (NA) 137 MEQ/L (136-145)
[2016-12-15 23:55] LABS: ALKALINE PHOSPHATASE 146 U/L (45-117); TOTAL BILIRUBIN ADULT 0.6 MG/DL (0.2-1.0)
[2016-12-16] VITALS: BP 104/54; PULSE 66; RESP 20; TEMP 99.3; O2SAT 96
[2016-12-16] MEDS ORDERED: VANCOMYCIN INJ 1,200 MG in SODIUM CHLOR 0.9% 250 ML INJ 250 ML IV ONE ×2
[2016-12-16] MEDS ORDERED: Vancomycin Consult Pharmacy 1 EA OTHER SCH
[2016-12-16 00:14] LABS: BANDS 18 % (0-6); EOSINOPHILS 1 % (0-4); METAMYELOCYTES 1 % (0-1); NEUTROPHIL # MANUAL DIFF 5.1 TH/MM3 (1.8-7.7); POLYS (SEG NEUTROPHILS) 63 % (16-70); WBC DIFF SAMPLE 100
[2016-12-16 00:16] LABS: PLATELET ESTIMATE SMEAR LOW (NORMAL); PLATELET MORPHOLOGY NORMAL (NORMAL); SCAN/DIFF FINAL DIFF MANUAL; TEARDROP RBCS 1+ (NORMAL)
[2016-12-16 04:00] VITALS: TEMP 97.2
[2016-12-16 05:40] LABS: HEMATOCRIT 39.6 % (39.0-51.0); MEAN CELL VOLUME 100.9 FL (80.0-100.0); MEAN CORPUSCULAR HEMOGLOBIN 34.9 PG (27.0-34.0); MEAN CORPUSCULAR HGB CONC 34.6 % (32.0-36.0); PLATELET COUNT 111 TH/MM3 (150-450); RED BLOOD COUNT 3.92 MIL/MM3 (4.50-5.90); REVIEW FLAG FINAL; WHITE BLOOD COUNT 5.6 TH/MM3 (4.0-11.0)
[2016-12-16 05:50] LABS: ALT (GPT) 123 U/L (12-78); ANION GAP 6 MEQ/L (5-15); AST (GOT) 108 U/L (15-37); BICARBONATE 28.9 MEQ/L (21.0-32.0); BLOOD UREA NITROGEN 13 MG/DL (7-18); CHLORIDE 104 MEQ/L (98-107); GLOMERULAR FILTRATION RATE 72 ML/MIN (>89); POTASSIUM 3.9 MEQ/L (3.5-5.1); SODIUM (NA) 139 MEQ/L (136-145)
[2016-12-16 05:52] LABS: ALKALINE PHOSPHATASE 155 U/L (45-117); TOTAL BILIRUBIN ADULT 0.7 MG/DL (0.2-1.0)
[2016-12-16 08:00] VITALS: BP 133/63; PULSE 57; RESP 16; TEMP 97.2; O2SAT 97
[2016-12-16] MEDS: DOCUSATE SODIUM 100 MG CAP PO SCH ×2 (08:07→20:31)
[2016-12-16] MEDS: diphenhydrAMINE HCL 25 MG CAP PO PRN (08:07)
[2016-12-16] MEDS: FOLIC ACID 1 MG TAB PO SCH (08:07)
[2016-12-16] MEDS: SULFAMETHOXAZOLE-TRIMETHOPRIM DS 800-160 MG TAB PO SCH (08:07)
[2016-12-16] MEDS: SODIUM CHLORIDE 0.9% FLUSH 10 ML FLUSH IV FLUSH SCH ×2 (08:08→20:31)
[2016-12-16] MEDS: THIAMINE HCL 100 MG TAB PO SCH (08:08)
--- NOTE | 2016-12-16 08:14 | HHI.PR ---
Subjective Remarks Tolerating PO antibiotics thus far. He had a rash overnight (now resolving) which he attributes to a snack he had. Will monitor the rash further in case it is form his antibiotics. Scalp ange removed today. Hand wound continues to improve and is now dry/scabbed. Tolerating a soft diet without any increase in jaw pain. Objective Vital Signs Date Time Temp Pulse Resp B/P Pulse Ox O2 Delivery O2 Flow Rate FiO2 12/16/16 04:00 97.2 12/16/16 00:00 99.3 66 20 104/54 96 12/15/16 22:20 100.1 12/15/16 20:00 102.4 75 22 133/60 96 12/15/16 16:00 99.6 62 20 160/77 96 12/15/16 12:00 98.3 56 18 140/68 96 I/O 12/15/16 12/15/16 12/15/16 12/16/16 12/16/16 12/16/16 07:00 15:00 23:00 07:00 15:00 23:00 Intake Total 797 ml 480 ml 240 ml 490 ml Output Total 1000 ml 325 ml 400 ml Balance -203 ml 480 ml -85 ml 90 ml Intake Oral 360 ml 480 ml 240 ml 240 ml IV Total 437 ml 0 ml 250 ml Output Urine Total 1000 ml 325 ml 400 ml # Voids 1 # Bowel Movements 1 0 0 Result Diagram: 12/16/16 0418 12/16/16 0418 Procedures orif w/mmf of bilateral mandible fractures Objective Remarks GENERAL: SKIN: Warm and dry. HEAD: Normocephalic. MOUTH: Broken lower teeth, superficial lacerations and bruising at lower lip EYES: No scleral icterus. No injection or drainage. NECK: Supple, trachea midline. No JVD or lymphadenopathy. CARDIOVASCULAR: Regular rate and rhythm without murmurs, gallops, or rubs. RESPIRATORY: Breath sounds equal bilaterally. No accessory muscle use. GASTROINTESTINAL: Abdomen soft, non-tender, nondistended. MUSCULOSKELETAL: No cyanosis, or edema. Right hand is bandaged. BACK: Nontender without obvious deformity. No CVA tenderness. A/P Problem List: (1) Abscess of right hand ICD Code: L02.511 Assessment & Plan: Continue PO Bactrim PRN pain treatment Daily dressing changes (2) Mandibular fracture ICD Code: S02.609A Assessment & Plan: Post op. PRN pain treatments Follow clinically for stability on soft diet Pain treatments in place. (3) Transaminitis ICD Code: R74.0 Assessment & Plan: Stable Now off Zosyn Follow LFTs in AM (4) Homelessness ICD Code: Z59.0 Assessment & Plan: Patient will need to have greater functionality prior to discharge as access to self-care options may be limited. (5) Tobacco abuse ICD Code: Z72.0 Assessment & Plan: off nicotine patch (6) Alcohol abuse ICD Code: F10.10 Assessment & Plan: Off sedatives No further DTs (7) Cellulitis ICD Code: L03.90 Assessment & Plan: No change in treatment. Continue antibiotics. (8) Scalp laceration ICD Code: S01.01XA Assessment & Plan: Wound well healed Day 11 after admit Ange removed today Problem Qualifiers (1) Mandibular fracture: Qualified Code: S02.611A - Closed fracture of right condylar process of mandible, initial encounter Joni Vazquez MD Dec 16, 2016 08:14
[2016-12-16 12:00] VITALS: BP 120/64; PULSE 58; RESP 14; TEMP 97.6; O2SAT 98
[2016-12-16] MEDS: VANCOMYCIN 1,000 MG/NS 250 ML IV SCH ×2 (12:04)
[2016-12-16] MEDS: ACETAMINOPHEN/HYDROcodone 325 MG/10 MG TAB PO PRN (18:17)
[2016-12-16 20:00] VITALS: BP 130/61; PULSE 68; RESP 17; TEMP 97.2; O2SAT 96
[2016-12-17] VITALS: BP 120/59; PULSE 58; RESP 17; TEMP 97.6; O2SAT 97
[2016-12-17] MEDS: VANCOMYCIN 1,000 MG/NS 250 ML IV SCH ×2 (00:09)
[2016-12-17] MEDS: diphenhydrAMINE HCL 25 MG CAP PO PRN (00:09)
[2016-12-17 07:00] LABS: ALKALINE PHOSPHATASE 132 U/L (45-117); ALT (GPT) 97 U/L (12-78); ANION GAP 5 MEQ/L (5-15); AST (GOT) 81 U/L (15-37); BICARBONATE 26.8 MEQ/L (21.0-32.0); BLOOD UREA NITROGEN 13 MG/DL (7-18); CHLORIDE 106 MEQ/L (98-107); GLOMERULAR FILTRATION RATE 89 ML/MIN (>89); POTASSIUM 4.1 MEQ/L (3.5-5.1); SODIUM (NA) 138 MEQ/L (136-145); TOTAL BILIRUBIN ADULT 0.4 MG/DL (0.2-1.0)
[2016-12-17 08:00] VITALS: BP 132/63; PULSE 56; RESP 18; TEMP 97.5; O2SAT 97
[2016-12-17] MEDS ORDERED: BACT800T5 PO (08:09)
[2016-12-17] MEDS ORDERED: AMBI5TAB PO (08:09)
[2016-12-17] MEDS ORDERED: HYDR-3583 PO (08:09)
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
[2016-12-17] MEDS: THIAMINE HCL 100 MG TAB PO SCH (08:58)
[2016-12-17] MEDS: FOLIC ACID 1 MG TAB PO SCH (08:58)
[2016-12-17] MEDS: DOCUSATE SODIUM 100 MG CAP PO SCH (08:58)
[2016-12-17] MEDS: SULFAMETHOXAZOLE-TRIMETHOPRIM DS 800-160 MG TAB PO SCH (08:58)
[2016-12-17] MEDS: ACETAMINOPHEN/HYDROcodone 325 MG/10 MG TAB PO PRN (08:58)
[2016-12-17] MEDS: SODIUM CHLORIDE 0.9% FLUSH 10 ML FLUSH IV FLUSH SCH (09:00)
[2016-12-17] MEDS ORDERED: PHARMACY ORDERED LAB ONE (11:45)
== END 2016-12-17 10:14 | disposition home or self-care (01) | DRG 131 ==
LOC: NEPE 16:33 → NEDA 19:08 → N07B 21:45
PROVIDERS: ADMIT Hospitalist; ATTEND Hospitalist
PROC: 0HQ0XZZ Repair Scalp Skin, External Approach (ICD-10-PCS; 2016-12-05)
PROC: 0NSV04Z Reposition Left Mandible with Internal Fixation Device, Open Approach (ICD-10-PCS; 2016-12-06)
PROC: 0CDXXZ1 Extraction of Lower Tooth, Multiple, External Approach (ICD-10-PCS; 2016-12-06)
PROC: 0NST04Z Reposition Right Mandible with Internal Fixation Device, Open Approach (ICD-10-PCS; principal; 2016-12-06 15:47)
DX: S02.622A Fracture of subcondylar process of left mandible, initial encounter for closed fracture (principal); F10.231 Alcohol dependence with withdrawal delirium; E46 Unspecified protein-calorie malnutrition; K70.9 Alcoholic liver disease, unspecified; S06.9X1A Unspecified intracranial injury with loss of consciousness of 30 minutes or less, initial encounter; F17.210 Nicotine dependence, cigarettes, uncomplicated; D50.9 Iron deficiency anemia, unspecified; L02.511 Cutaneous abscess of right hand; S02.66XA Fracture of symphysis of mandible, initial encounter for closed fracture; S01.01XA Laceration without foreign body of scalp, initial encounter; D72.819 Decreased white blood cell count, unspecified; R73.9 Hyperglycemia, unspecified; B18.2 Chronic viral hepatitis C; K59.00 Constipation, unspecified; R21 Rash and other nonspecific skin eruption; T36.0X5A Adverse effect of penicillins, initial encounter; Y00.XXXA Assault by blunt object, initial encounter; Y90.8 Blood alcohol level of 240 mg/100 ml or more; Z59.0 Homelessness; Z68.25 Body mass index [BMI] 25.0-25.9, adult; Z78.1 Physical restraint status
CPT/HCPCS: 12002; 70450; 70486; 71010; 72125; 73130; 80048; 80053; 80307; 81001; 82607; 82728; 82746; 82948; 83036; 83540; 83550; 83605; 83735; 84100; 85007; 85025; 85027; 85610; 85730; 86022; 87040; 90471; 90714; 93005; 96361; 96374; 96375; 96376; C1713; J0131; J0295; J0690; J1100; J1170; J1885; J2060; J2250; J2270; J2405; J2710; J3010; J3370; J7030; J7050; J7120; L0150

== ENCOUNTER 2017-04-04 12:15 | Emergency (ER) | payer OTHER ==
[~2017-04-04] VITALS: Ht 182.9 cm; Wt 77.0 kg
[~2017-04-04 12:15] MED LIST changes: +AMBI5TAB PO; -BACI500O2 TOPICAL; -CEPH-460 PO; -HYDR-3580 PO; +HYDR-3583 PO
[2017-04-04 12:19] VITALS: BP 130/61; PULSE 90; RESP 16; TEMP 99.2; O2SAT 96
--- NOTE | 2017-04-04 12:40 | PD ---
HPI . left index finger infection Chief Complaint: Skin Problem Time Seen by Provider: 12:39 Travel History International Travel<30 days: No Contact w/Intl Traveler<30days: No Traveled to known affect area: No History of Present Illness HPI 61-year-old male here with complaints of a skin infection to his left index finger. Patient tells me also has multiple other lesions on his body. 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 He does have patient assistance, but has not yet established with community clinic. He denies any fever or chills. He has no other complaints. He has not tried being seen over in the clinic. PFSH Past Medical History Hx Anticoagulant Therapy: No Blood Disorders: No Anxiety: No Depression: No Heart Rhythm Problems: No Cancer: No Cardiovascular Problems: Yes High Cholesterol: No Chemotherapy: No Chest Pain: No Congestive Heart Failure: No COPD: No Cerebrovascular Accident: No Diabetes: No Diminished Hearing: No Endocrine: No Gastrointestinal Disorders: Yes Genitourinary: No Hepatitis: Yes (HEP C) Hiatal Hernia: No Hypertension: Yes Immune Disorder: No Implanted Vascular Access Dvce: No Musculoskeletal: Yes Neurologic: Yes (Numbness/tingling right hand) Psychiatric: No Reproductive: No Respiratory: Yes Immunizations Current: No Radiation Therapy: No Sleep Apnea: No Thyroid Disease: No Tetanus Vaccination: < 5 Years Influenza Vaccination: Yes Past Surgical History Abdominal Surgery: No AICD: No Body Medical Devices: Plates in bilateral arms, [place]ava[place] in left leg Cardiac Surgery: No Ear Surgery: No Endocrine Surgery: No Eye Surgery: No Genitourinary Surgery: No Gynecologic Surgery: No Hysterectomy: No Joint Replacement: No Oral Surgery: Yes (jaw sx) Pacemaker: No Thoracic Surgery: No Other Surgery: Yes (Bilateral arms, Left knee) Social History Alcohol Use: No Tobacco Use: Yes (1/2 PK/DAY) Substance Use: No Allergies-Medications (Allergen,Severity, Reaction): Coded Allergies: *MDRO Multi-Drug Resistant Organism (Verified Adverse Reaction, Unknown, ) 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 Reported Meds & Prescriptions Reported Meds & Active Scripts Active No Active Prescriptions or Reported Medications Review of Systems General / Constitutional: No: Fever Eyes: No: Visual changes HENT: No: Headaches Cardiovascular: No: Chest Pain or Discomfort Respiratory: No: Shortness of Breath Gastrointestinal: No: Abdominal Pain Genitourinary: Positive: Other, No: Dysuria Musculoskeletal: No: Pain Skin: Positive Other (left index finger infection ), No Rash Neurologic: No: Weakness Psychiatric: No: Depression Endocrine: No: Polydipsia Hematologic/Lymphatic: No: Easy Bruising Physical Exam Narrative GENERAL: AAO x 3, no acute distress, Well-nourished, well-developed patient. SKIN: Warm and dry. No visible rashes or bruising. left index finger with 2 cm wound with erythema, slight blistering, warm to touch, no visible purulence, no streaking HEAD: Normocephalic and atraumatic. EYES: No scleral icterus. No injection or drainage. EOM intact, PERRLA ENT: No nasal drainage noted. Mucous membranes pink. Airway patent. NECK: Supple, trachea midline. No JVD. CARDIOVASCULAR: Regular rate and rhythm without murmurs, gallops, or rubs. RESPIRATORY: Breath sounds equal bilaterally. No accessory muscle use. No rhonchi or rales. GASTROINTESTINAL: Abdomen soft, non-tender, nondistended. EXTREMITIES: No cyanosis or edema. joints move freely b/l hands, BACK: No obvious deformity. NEURO: CN II-12 intact, supervisor advice strength normal b/l, UE and LE 5/5, no focal deficits PSYCH: AAO x 3, normal affect. Data Data Last Documented VS Vital Signs Date Time Temp Pulse Resp B/P Pulse Ox O2 Delivery O2 Flow Rate FiO2 04/04/17 12:19 99.2 90 16 130/61 96 MDM Medical Decision Making Medical Screen Exam Complete: Yes Emergency Medical Condition: No Medical Record Reviewed: Yes Differential Diagnosis Left index finger cellulitis, less likely sepsis, possible foreign body to the left finger Narrative Course 61-year-old male here with left finger infection. This is a mild infection. He starts the community clinic and spoke into [facility]. She has agreed to see the patient today. Financial counselors have transport the patient to the community clinic. A medical screening exam was performed: At the time of evaluation the presenting medical condition was determined not to be of an emergent nature. The patient was given the option of receiving additional care, but declined. Patient was given options for additional community resources from which to obtain care. The Patient Has Been advised to seek medical attention for their presenting complaint. The patient has been advised to return to the ER at any time if an emergent condition develops. Diagnosis Primary Impression: Encounter for medical screening examination Scripts No Active Prescriptions or Reported Meds Condition: Stable Lavonne London Apr 04, 2017 12:40
[2017-04-04] MEDS ORDERED: BACT800T5 PO (13:10)
== END 2017-04-04 12:53 | disposition left against medical advice (07) ==
LOC: NEPK 12:15
DX: L08.9 Local infection of the skin and subcutaneous tissue, unspecified (principal)
CPT/HCPCS: 99281

== ENCOUNTER 2017-05-17 16:10 | Emergency (ER) | payer OTHER ==
[~2017-05-17 16:10] MED LIST changes: -AMBI5TAB PO; -HYDR-3583 PO
--- NOTE | 2017-05-17 16:18 | PD ---
Physical Exam Time Seen by Provider: 16:18 Narrative 61-year-old male presents via [facility] with right ankle pain after tripping in a hole. Denies hitting his head or loss of consciousness. Patient seen in triage. Vital signs reviewed. Patient awaiting bed placement. MDM Supervised Visit with SERA: Ashly Peña May 17, 2017 16:18
[2017-05-17 16:21] VITALS: BP 159/80; PULSE 85; RESP 13; TEMP 97.5; O2SAT 99
--- NOTE | 2017-05-17 16:44 | PD ---
HPI Chief Complaint: Injury Time Seen by Provider: 16:25 Travel History International Travel<30 days: No Contact w/Intl Traveler<30days: No Traveled to known affect area: No History of Present Illness HPI Patient comes in complaining of right ankle and lateral foot pain began after he tripped and fall approximately 5 hours ago. Patient denies hitting his head or loss of consciousness. 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 Patient was finally brought in by [facility]. Patient complains of aching throbbing pain in his right ankle anterior aspect and lateral aspect of his right foot. Denies any radiation of the pain. Patient states pain was keeping him from being able to walk. Patient denies doing anything for this prior to coming to the emergency department other than having the EMS place a splint and ice, which seemed to help with his pain. Patient reports he last ate 2 days ago. PFSH Past Medical History Hx Anticoagulant Therapy: No Blood Disorders: No Anxiety: No Depression: No Heart Rhythm Problems: No Cancer: No Cardiovascular Problems: Yes High Cholesterol: No Chemotherapy: No Chest Pain: No Congestive Heart Failure: No COPD: No Cerebrovascular Accident: No Diabetes: No Diminished Hearing: No Endocrine: No Gastrointestinal Disorders: Yes Genitourinary: No Hepatitis: Yes (HEP C) Hiatal Hernia: No Hypertension: Yes Immune Disorder: No Implanted Vascular Access Dvce: No Musculoskeletal: Yes Neurologic: Yes (Numbness/tingling right hand) Psychiatric: No Reproductive: No Respiratory: Yes Immunizations Current: No Radiation Therapy: No Sleep Apnea: No Thyroid Disease: No Past Surgical History Abdominal Surgery: No AICD: No Body Medical Devices: Plates in bilateral arms, Tavares in left leg Cardiac Surgery: No Ear Surgery: No Endocrine Surgery: No Eye Surgery: No Genitourinary Surgery: No Gynecologic Surgery: No Hysterectomy: No Joint Replacement: No Oral Surgery: Yes (jaw sx) Pacemaker: No Thoracic Surgery: No Other Surgery: Yes (Bilateral arms, Left knee) Social History Alcohol Use: No Tobacco Use: Yes (1/2 PK/DAY) Substance Use: No Allergies-Medications (Allergen,Severity, Reaction): Coded Allergies: *MDRO Multi-Drug Resistant Organism (Verified Adverse Reaction, Unknown, ) 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 Reported Meds & Prescriptions Reported Meds & Active Scripts Active Bactrim DS (Sulfamethoxazole-Trimethoprim) 800-160 Mg Tab 1 Tab PO BID Review of Systems Except as stated in HPI: all other systems reviewed are Neg Physical Exam Narrative GENERAL: Well-developed, well nourished, in no acute distress, and non-ill appearing. SKIN: Focused skin assessment warm and dry. HEAD: Atraumatic. Normocephalic. EYES: Pupils equal and round. EOMI. No scleral icterus. No injection or drainage. ENT: No nasal bleeding or discharge. Mucous membranes pink and moist. NECK: Trachea midline. Supple. No nuclear rigidity. CARDIOVASCULAR: Pulses 2+, intact, and equal bilaterally. Capillary refill less than 2 seconds. RESPIRATORY: No accessory muscle use. No respiratory distress. MUSCULOSKELETAL: No obvious deformities. No clubbing. No cyanosis. No edema. Decreased range of motion secondary to pain. Ankle: Neagative anterior draw and Reynaga test. Negative Danae's sign. No laxity noted with passive inversion and eversion of BL ankles. Negative squeeze test. Pulses equal BL distal to injury. Capillary refill less than 2 seconds distal to injury and equal BL. Sensation equal BL 1st web space. FROM of toes distal to injury and equal BL. NV intact distal to injury and equal BL. Dorsal pulses equal BL. Patient reports tenderness to palpation throughout his right ankle and dorsal aspect of right foot. No ecchymosis or soft tissue swelling noted. NEUROLOGICAL: Awake and alert. No obvious cranial nerve deficits. Motor grossly within normal limits. Normal speech. PSYCHIATRIC: Appropriate mood and affect; insight and judgment normal. Data Data Last Documented VS Vital Signs Date Time Temp Pulse Resp B/P (MAP) Pulse Ox O2 Delivery O2 Flow Rate FiO2 05/17/17 18:16 05/17/17 16:21 97.5 85 13 99 Orders Orders Ankle, Complete ([id number]) (05/17/17 ) Foot, Complete ([id number]) (05/17/17 ) Oxycodone-Acetamin 5-325 Mg (Percocet (05/17/17 16:45) Naproxen (Naprosyn) (05/17/17 16:45) Ice/Cold Pack (05/17/17 16:41) Acetamin-Hydrocod 325-5 Mg ([place] 5-325 (05/17/17 17:00) Splint Or Brace Apply/Monitor (05/17/17 18:06) [facility] Medical Decision Making Medical Screen Exam Complete: Yes Emergency Medical Condition: Yes Interpretation(s) X-ray of the right foot read by the radiologist shows: No acute osseous injury. X-ray of the right ankle read by radiologist shows: No fracture or effusion Differential Diagnosis Fracture, sprain, contusion, dislocation, other Narrative Course There is no clinical evidence for fracture. There is no clinical evidence to suspect bony injury by exam. Radiographic examination revealed no fracture seen at this time. No obvious ligamental injury or internal derangement is noted at this time. The distal extremity appears neurovascularly intact, without evidence of neurovascular injury nor compartment syndrome. Tendon exam also was intact. The effected limb was splinted. The patient was discharged with sprain and splint care instructions and given warnings for vascular compromise. The patient is to follow up with primary care provider and/or podiatry. The patient agrees with plan. Patient in no obvious distress upon re-evaluation. All pertinent Radiology result(s) discussed with patient. Any questions/concerns in reference to patient diagnosis/condition discussed and clarified prior to patient's discharge. Reinforced sheer importance of close follow up with patient's primary physician or primary care clinic and/or synthetic department supervisor. Instructed patient to return to ED immediately, if symptoms return/worsen. Patient showed understanding of above instructions. Further instructions and recommendations were detailed in discharge paperwork. Patient ambulated without difficulty out of ED at discharge with crutches. Diagnosis Primary Impression: Right ankle sprain Qualified Codes: S93.401A - Sprain of unspecified ligament of right ankle, initial encounter Additional Impression: Right foot sprain Qualified Codes: S93.601A - Unspecified sprain of right foot, initial encounter Referrals: [facility] Patient Instructions: Ankle Exercises (GEN), Ankle Sprain (ED), Ankle Stirrup Splint (ED), Crutch Instructions (ED), Foot Sprain (ED), General Instructions Additional Instructions: Follow-up with your primary care physician and/or synthetic department supervisor next week for reevaluation. Were Josué wrap and ankle stirrup splint for support as needed. Use crutches for support as needed. Use [id number] Tylenol and/or ibuprofen as needed for pain. Follow instructions on the packaging. Apply ice to affected area 20 minutes per hour as needed for pain. Return to the emergency department if symptoms get worse. Disposition: 01 DISCHARGE HOME Condition: Stable Madi Ugalde May 17, 2017 16:44
[2017-05-17] MEDS ORDERED: oxyCODONE/ACETAMINOPHEN 5 MG/325 MG TAB PO ONE (16:45)
[2017-05-17] MEDS ORDERED: NAPROXEN 500 MG TAB PO ONE (16:45)
[2017-05-17] MEDS ORDERED: ACETAMINOPHEN/HYDROcodone 325 MG/5 MG TAB PO ONE (17:00)
--- NOTE | 2017-05-17 17:50 | RADRPT ---
EXAM DATE/TIME: 05/17/2017 17:06 [facility] COMPARISON: No previous studies available for comparison. INDICATIONS : Patient complains of right ankle pain status post tripping in whole in the ground. MEDICAL HISTORY : None. SURGICAL HISTORY : None. ENCOUNTER: Initial ACUITY: 1 day PAIN SCORE: 9/10 LOCATION: Right Ankle FINDINGS: Three view exam was performed of the right ankle. The bony structures are in normal alignment. No e vidence of fracture, dislocation, or soft tissue swelling. The ankle mortise is intact. No radiopaq ue foreign bodies are seen. Bony mineralization is normal. CONCLUSION: No fracture or effusion. Ricky Leonardo MD on May 17, 2017 at 17:48 Board Certified Radiologist. This report was verified electronically.
--- NOTE | 2017-05-17 17:51 | RADRPT ---
EXAM DATE/TIME: 05/17/2017 17:11 [facility] COMPARISON: No previous studies available for comparison. INDICATIONS : Patient complains of right foot pain status post tripping in hole in the ground. MEDICAL HISTORY : None. SURGICAL HISTORY : None. ENCOUNTER: Initial ACUITY: 1 day PAIN SCORE: 9/10 LOCATION: Right Foot FINDINGS: Three view examination of the right foot demonstrates no soft tissue swelling, dislocation, or fractu re. The tarsal bones appear intact. The interphalangeal and metatarsophalangeal joints are intact. The calcaneus is intact. Bony mineralization is normal. CONCLUSION: No acute osseous injury. Ricky Leonardo MD on May 17, 2017 at 17:48 Board Certified Radiologist. This report was verified electronically.
== END 2017-05-17 18:20 | disposition home or self-care (01) ==
LOC: NEPK 16:10
DX: S93.401A Sprain of unspecified ligament of right ankle, initial encounter (principal); S93.601A Unspecified sprain of right foot, initial encounter; W01.0XXA Fall on same level from slipping, tripping and stumbling without subsequent striking against object, initial encounter
CPT/HCPCS: 73610; 73630; 99283; E0113; L1906